=== PATIENT | female | born 1995 | race Caucasian/White ===

== ENCOUNTER 2017-03-19 02:54 | Emergency (ER) | payer OTHER ==
[~2017-03-19] VITALS: Ht 157.5 cm; Wt 75.1 kg
[~2017-03-19 02:54] MED LIST: ACET-1256 PO
[2017-03-19 02:58] VITALS: Ht 157.5 cm; Wt 75.1 kg
--- NOTE | 2017-03-19 03:37 | EMERGENCY ROOM VISIT NOTE ---
History First contact with patient: 03:07 Chief Complaint: OTHER COMPLAINT Stated Complaint: NEXPLANON IS CAUSING SEVERE ARM PAIN History of Present Illness The patient is a 21 year old female who presents to the Emergency Room with complaints of left arm pain. The patient states that she has a Nexplanon implant in her left arm. She has had this in place for 3 years and states that it was inserted by a [facility] in [place]. The patient states that the left arm has been painful for the past 2 days. The pain is worst in the upper arm, but radiates throughout the entire arm. She denies any injuries. She is concerned that the implant may be broken. 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 She denies any redness, swelling or fever. Review of Systems A complete 10 point review of systems was reviewed with the patient with pertinent positives and negatives as per history of present illness. All else were negative. Past Medical/Surgical History Medical Problems: (1) No significant past medical history Surgical Problems: (1) No history of previous surgery Social History Smoking Status: Former Smoker Alcohol Use: occasionally Drug Use: none Marital Status: single Housing Status: lives with friends Occupation Status: unemployed Current/Historical Medications Scheduled Acetaminophen (Tylenol), 500-1,000 MG PO PRN UD Allergies Coded Allergies: No Known Allergies (Unverified , 07/04/16) Physical Exam Vital Signs Date Time Temp Pulse Resp B/P Pulse Ox O2 Delivery O2 Flow Rate FiO2 03/19/17 03:48 36.8 70 19 124/88 99 03/19/17 02:58 36.8 70 19 124/88 99 Room Air Physical Exam VITALS: Vitals are noted on the nurse's note and reviewed by myself. Vital signs stable. GENERAL: This is a 21-year-old female, in no acute distress, nondiaphoretic, well-developed well-nourished. SKIN: No erythema, induration or warmth of the left upper arm. A linear foreign body is palpated under the skin in the left medial upper arm. MUSCULOSKELETAL: Full range of motion of the left arm. There is tenderness to palpation diffusely over the left arm. NEURO: Patient was alert and oriented to person place and time. Medical Decision & Procedures Medical Decision Differential diagnosis includes infection, implant migration, muscle soreness, among others. The patient was evaluated as above. The implant is easily palpable under the skin and there are no signs of infection. Given that there was no trauma, I do not feel imaging is necessary. The patient was referred to PATIENT ACCOUNTS SPECIALIST for follow- up. She was instructed to take Tylenol and ibuprofen for pain. She verbalized understanding and was discharged home in good condition. Impression Primary Impression: Left upper arm pain Departure Information Dispostion Home / Self-Care Condition GOOD Referrals No Doctor, Assigned (PCP) Tra Bedoya M.D. Patient Instructions My [facility] Additional Instructions Follow up with [facility] PATIENT ACCOUNTS SPECIALIST. Call for appointment. For pain control, you can use the following fehl-kiz-[id number] medicines (if >12 yo): - Regular strength (325mg/tab) Tylenol (acetaminophen) 2 tabs every 4-6 hours as needed. Do not exceed 12 tablets in a 24 hour period. Avoid taking more than 4 grams (4000 mg) of Tylenol per day. This includes any other sources of acetaminophen you may take on a regular basis. - Regular strength (200 mg/tab) Advil (ibuprofen) 1-2 tabs every 4-6 hours as needed. Do not exceed a dose of 3200 mg per day.
[2017-03-19 03:48] VITALS: BP 124/88; PULSE 70; TEMP 36.8; O2SAT 99
[2017-03-19] MEDS ORDERED: ETON1IMP2 EP (03:55)
== END 2017-03-19 03:49 | disposition home or self-care (01) ==
LOC: C.EDB 02:55
DX: M79.602 Pain in left arm (principal); Z87.891 Personal history of nicotine dependence

== ENCOUNTER 2017-05-31 17:33 | Emergency (ER) | payer OTHER ==
[~2017-05-31] VITALS: Ht 157.5 cm; Wt 77.9 kg
[~2017-05-31 17:33] MED LIST changes: +ETON1IMP2 EP
[2017-05-31 17:35] VITALS: TEMP 36.8; Ht 157.5 cm; Wt 77.9 kg
--- NOTE | 2017-05-31 19:56 | DIAGNOSTIC IMAGING REPORT ---
RIGHT LOWER EXTREMITY VENOUS DOPPLER CLINICAL HISTORY: Right leg pain. COMPARISON STUDY: No previous studies for comparison. TECHNIQUE: Sonography of the deep venous system of the right lower extremity was performed. Compression and augmentation were evaluated. FINDINGS: The common femoral, superficial femoral and popliteal veins were compressible. Augmentation was normal. Flow was shown within the deep calf vessels. Sonography of the anterior right thigh at site of maximal pain revealed no fluid collection or other sonographic abnormality. IMPRESSION: No evidence of deep venous thrombus within the right lower extremity. Electronically signed by: Dusty Key M.D. 05/31/2017 7:55 PM Dictated Date/Time: 05/31/2017 7:54 PM
--- NOTE | 2017-05-31 20:13 | EMERGENCY ROOM VISIT NOTE ---
History First contact with patient: 17:44 Chief Complaint: BITE Stated Complaint: POSS SPIDER BITE L SHOULDER,PULLED MUSCLE R LEG History of Present Illness The patient is a 22 year old female who presents to the Emergency Room with complaints of a possible spider bite to her left shoulder and a pulled muscle on her right leg. The patient states that she was camping a few days ago and noticed an insect bite on her left shoulder. She states it was initially itchy but has improved. She was concerned because it appears to be 2 bites beside each other, and she was concerned that it may be a spider bite. She denies any pain in that region. The patient also states that she has had right thigh pain for about one week. She states that the pain worsened when she went to [facility] and walked around a few days ago. She denies any specific injury to the leg. She does take control pills and "vapes." She denies any recent travel. She denies any chest pain or shortness of breath. She denies any redness or swelling of the leg. She rates her discomfort a 5/10. Review of Systems A complete 10 point review of systems was reviewed with the patient with pertinent positives and negatives as per history of present illness. All else were negative. Past Medical/Surgical History Medical Problems: (1) No significant past medical history Surgical Problems: (1) No history of previous surgery Social History Smoking Status: Former Smoker Alcohol Use: occasionally Drug Use: none Marital Status: single Housing Status: lives with friends Occupation Status: unemployed Current/Historical Medications No Active Prescriptions or Reported Meds Allergies Coded Allergies: No Known Allergies (Unverified , 07/04/16) Physical Exam Vital Signs Date Time Temp Pulse Resp B/P (MAP) Pulse Ox O2 Delivery O2 Flow Rate FiO2 05/31/17 20:27 81 16 120/84 97 Room Air 05/31/17 17:35 36.8 78 18 116/82 96 Room Air Physical Exam VITALS: Vitals are noted on the nurse's note and reviewed by myself. Vital signs stable. GENERAL: This is a 22-year-old female, in no acute distress, nondiaphoretic, well-developed well-nourished. SKIN: There are 2 small adjacent insect bites on the left shoulder. HEART: Regular rate and rhythm without murmurs gallops or rubs. LUNGS: Clear to auscultation bilaterally without wheezes, rales or rhonchi. MUSCULOSKELETAL: No significant tenderness to palpation. Full range of motion throughout. Strength 5/5 in bilateral lower extremity. NEURO: Patient was alert and oriented to person place and time. Medical Decision & Procedures ER Provider Diagnostic Interpretation: RIGHT LOWER EXTREMITY VENOUS DOPPLER CLINICAL HISTORY: Right leg pain. COMPARISON STUDY: No previous studies for comparison. TECHNIQUE: Sonography of the deep venous system of the right lower extremity was performed. Compression and augmentation were evaluated. FINDINGS: The common femoral, superficial femoral and popliteal veins were compressible. Augmentation was normal. Flow was shown within the deep calf vessels. Sonography of the anterior right thigh at site of maximal pain revealed no fluid collection or other sonographic abnormality. IMPRESSION: No evidence of deep venous thrombus within the right lower extremity. Medical Decision Differential diagnosis includes DVT, superficial thrombus, musculoskeletal injury, among others. The patient was evaluated as above. An ultrasound of the right leg was performed to rule out DVT, as the patient does have atraumatic leg pain. This was performed and read by radiology with no acute findings. The patient's pain is likely musculoskeletal in nature. Conservative measures were discussed. She was instructed to follow-up with her primary care provider for further evaluation. She verbalized understanding of my assessment and treatment plan and was discharged home in good condition. Medication reconciliation: I attest that I have personally reviewed the patient 's current medication list. Blood pressure screening: Patient was found to have normal blood pressure on screening and does not require follow-up. Impression Primary Impression: Right leg pain Departure Information Dispostion Home / Self-Care Condition GOOD Prescriptions No Active Prescriptions or Reported Meds Referrals No Doctor, Assigned (PCP) Patient Instructions My [facility] Additional Instructions For pain control, you can use the following hpxu-biw-lfgzppr medicines (if >12 yo): - Regular strength (325mg/tab) Tylenol (acetaminophen) 2 tabs every 4-6 hours as needed. Do not exceed 12 tablets in a 24 hour period. Avoid taking more than 4 grams (4000 mg) of Tylenol per day. This includes any other sources of acetaminophen you may take on a regular basis. - Regular strength (200 mg/tab) Advil (ibuprofen) 1-2 tabs every 4-6 hours as needed. Do not exceed a dose of 3200 mg per day. Rest as much as possible for the next 3-4 days. If you have persistent or worsening pain, you should follow-up with your primary care provider for further evaluation.
[2017-05-31 20:27] VITALS: BP 120/84; PULSE 81; O2SAT 97
== END 2017-05-31 20:29 | disposition home or self-care (01) ==
LOC: C.EDB 17:34 → C.EDD 20:29
DX: M79.604 Pain in right leg (principal); S40.262A Insect bite (nonvenomous) of left shoulder, initial encounter; W57.XXXA Bitten or stung by nonvenomous insect and other nonvenomous arthropods, initial encounter; Y92.833 Campsite as the place of occurrence of the external cause; Z87.891 Personal history of nicotine dependence; Z79.3 Long term (current) use of hormonal contraceptives

== ENCOUNTER 2017-06-06 00:49 | Emergency (ER) | payer OTHER ==
[~2017-06-06] VITALS: Ht 157.5 cm; Wt 75.2 kg
[2017-06-06 00:57] VITALS: TEMP 37.1; Ht 157.5 cm; Wt 75.2 kg
[2017-06-06] MEDS ORDERED: XYLOCAINE 1%/SOD BICARB 20 ML VIAL INFIL ONE (01:15)
[2017-06-06] MEDS ORDERED: DIPHTHERIA/TETANUS/PERTUSSIS 0.5 ML SYR/VIAL IM. ONE (01:15)
[2017-06-06 02:11] VITALS: BP 115/76; PULSE 57; O2SAT 97
--- NOTE | 2017-06-06 05:41 | EMERGENCY ROOM VISIT NOTE ---
ED Visit Note First contact with patient: 01:00 CHIEF COMPLAINT: Left forearm laceration HISTORY OF PRESENT ILLNESS: This 22-year-old female patient presents to the emergency department after cutting the left forearm about one hour ago. The patient was putting together a glass entertainment center, when a piece fell, shattered, and caused her injury. The bleeding has stopped. Denies weakness or numbness of the hand, wrist, or elbow. The patient rates the pain as dull and 4/ 10. The patient denies any other injuries. The patient's Tetanus shot is not up to date. REVIEW OF SYSTEMS: A 6 system review of systems was completed with positives and pertinent negatives listed in the HPI. ALLERGIES: Known allergies MEDICATIONS: See EMR PMH: See EMR SOCIAL HISTORY: Lives locally PHYSICAL EXAM: Vital Signs: Reviewed Nurse's notes, vital signs stable. GENERAL : White female, in no acute distress, well-developed, well-nourished. SKIN: There is a 5.5 cm long laceration on the volar aspect of the left forearm. The edges gape apart with traction. There is no foreign material in the wound and it looks clean. There is bleeding. No deep structures such as tendons, bones, or significant blood vessels are seen in the base of the wound. Normal strength and movement of the wrist and hand. Capillary refill less than 2 seconds. Normal sensation to light and sharp touch. EMERGENCY DEPARTMENT COURSE: I examined the patient. Verbal consent was obtained to perform the procedure. Using sterile technique the wound was cleansed with Betadine. The area was sterilely draped. 5 ml of 1% buffered lidocaine was used to anesthetize the laceration on the left forearm. Once the patient was anesthetized, the wound was copiously irrigated under pressure with sterile saline. The wound was explored and was as described above. The laceration was repaired using 8 simple interrupted 4-0 nylon sutures with the wound edges being well approximated. The patient tolerated the procedure well. Hemostasis was achieved. The area was cleaned with sterile saline and dressed with bacitracin ointment and bandage. The patient was given Td immunization. The patient was discharged home in good condition. Current/Historical Medications No Active Prescriptions or Reported Meds Allergies Coded Allergies: No Known Allergies (Unverified , 07/04/16) Vital Signs Date Time Temp Pulse Resp B/P (MAP) Pulse Ox O2 Delivery O2 Flow Rate FiO2 7/23/17 02:11 57 20 115/76 97 06/06/17 00:57 37.1 107 20 131/84 100 Room Air Medications Administered Medications (Trade) Dose Ordered Sig/Jose Route Start Time Stop Time Status Last Admin Dose Admin Diphtheria/ Pertussis/Tetanus Vacc (Adacel Inj) 0.5 ml ONCE ONCE IM. 06/06/17 01:15 06/06/17 01:16 DC 06/06/17 01:12 0.5 ML Departure Information Impression Primary Impression: Laceration of forearm, left Dispostion Home / Self-Care Condition GOOD Prescriptions No Active Prescriptions or Reported Meds Forms HOME CARE DOCUMENTATION FORM, IMPORTANT VISIT INFORMATION Patient Instructions My [facility] Additional Instructions Keep wound clean and dry. Do not allow any crusting or dried blood to accumulate on sutures. If this occurs, use a mild soap/water on a Q-tip to clean the wound. Do not use Peroxide to clean the wound as this can delay healing Use an antibiotic ointment like Bacitracin for 3-4 days, then let wound dry. You may bathe and shower as normal, but DO NOT SOAK the wound. Suture removal in about 10-12 days with your Family Doctor or in the ER. Return sooner for any signs of infection, increasing redness, swelling, or drainage.
== END 2017-06-06 02:14 | disposition home or self-care (01) ==
LOC: C.EDB 00:50
DX: S51.812A Laceration without foreign body of left forearm, initial encounter (principal); W25.XXXA Contact with sharp glass, initial encounter; Z23 Encounter for immunization; Y93.89 Activity, other specified

== ENCOUNTER 2017-06-08 03:11 | Inpatient (IN) | payer OTHER ==
[~2017-06-08] VITALS: Ht 157.5 cm; Wt 74.0 kg
--- NOTE | 2017-06-08 03:43 | EMERGENCY ROOM VISIT NOTE ---
History Report prepared by Martha: Ad Arellano Under the Supervision of: Dr. Tiffanie Maxwell D.O. First contact with patient: 03:22 Chief Complaint: MENTAL HEALTH EVALUATION Stated Complaint: MR History of Present Illness The patient is a 22 year old female who presents to the Emergency Room for a mental health evaluation due to self harm. The patient states that she was cutting her forearms with a razor blade to release the depression. She states that she has a history of depression and anxiety, though she does not take any medication. The patient states that she does not see a therapist, and she has been admitted to a psychiatric facility before more than four year ago. The patient states that she drank a small amount of alcohol tonight, and she did not do any drugs. The patient states that her mother called the police due to a facebook post, and she states that she is depressed because her mother took away her son, and her boyfriend left her. She states that she currently lives alone, and her last period was two and a half weeks ago. She denies any leg cramping or swelling. The patient additionally states that she has sutures in her arm from accidentally cutting herself with broken glass. Source of History: patient Onset: prior to arrival Position: other (global) Quality: other (self harm) Note: Associated symptoms: Cuts to the left forearm Review of Systems See HPI for pertinent positives & negatives. A total of 10 systems reviewed and were otherwise negative. Past Medical & Surgical Medical Problems: (1) Depression (2) No significant past medical history Surgical Problems: (1) No history of previous surgery Social History Problems: (1) Unprotected sex Family History Patient reports no known family medical history. Social History Smoking Status: Current Every Day Smoker Alcohol Use: occasionally Drug Use: none Marital Status: single Housing Status: lives with friends Occupation Status: unemployed Current/Historical Medications No Active Prescriptions or Reported Meds Allergies Coded Allergies: No Known Allergies (Unverified , 07/04/16) Physical Exam Vital Signs Date Time Temp Pulse Resp B/P (MAP) Pulse Ox O2 Delivery O2 Flow Rate FiO2 06/08/17 06:30 70 18 119/70 98 Room Air 06/08/17 04:30 69 18 110/76 100 Room Air 06/08/17 03:14 36.7 88 14 132/86 98 Room Air Physical Exam HEENT: Head - normocephalic and atraumatic Pupils are equal, round, and reactive to light. Extraocular eye muscles are intact, and sclera are anicteric. Nose - moist nasal mucosa without discharge. Mouth - moist buccal mucosa. Oropharynx is nonerythematous and there is no tonsillar exudate or edema noted. Neck: Supple; no JVD, nuchal rigidity, cervical lymphadenopathy. Heart: Regular rate and rhythm. There is a normal S1 and S2 with no murmurs, clicks, or gallops appreciated. Lungs: Clear to auscultation bilaterally with no wheezes, rales, or rhonchi. Abdomen: Soft, completely nontender, nondistended, with good bowel sounds. There are no palpable pulsatile masses or hepatosplenomegaly. There is no guarding, rigidity, or rebound noted. Extremities: Superficial laceration to the left ventral forearm. One well healing sutured laceration.No evidence of cyanosis, clubbing, or edema. There are easily palpable peripheral pulses. Skin: warm and dry with good turgor and no rashes. Psych: Appears depressed and slightly angry. Admits to self mutilation. Medical Decision & Procedures Laboratory Results 06/08/17 03:53 06/08/17 03:53 Test 06/08/17 03:53 06/08/17 03:55 Red Blood Count 4.93 M/uL (4.2-5.4) Mean Corpuscular Volume 81.9 fL (80-100) Mean Corpuscular Hemoglobin 28.2 pg (25-34) Mean Corpuscular Hemoglobin Concent 34.4 g/dl (32-36) RDW Standard Deviation 39.0 fL (36.4-46.3) RDW Coefficient of Variation 13.0 % (11.5-14.5) Mean Platelet Volume 8.4 fL (7.4-10.4) Anion Gap 7.0 mmol/L (3-11) Est Creatinine Clear Calc Drug Dose 134.9 ml/min Estimated GFR () 148.6 Estimated GFR (Non- 128.2 BUN/Creatinine Ratio 8.2 (10-20) Calcium Level 8.1 mg/dl (8.5-10.1) Total Bilirubin 0.1 mg/dl (0.2-1) Direct Bilirubin < 0.1 mg/dl (0-0.2) Aspartate Amino Transf (AST/SGOT) 18 U/L (15-37) Alanine Aminotransferase (ALT/SGPT) 33 U/L (12-78) Alkaline Phosphatase 66 U/L (45-117) Total Protein 6.2 gm/dl (6.4-8.2) Albumin 3.3 gm/dl (3.4-5.0) Thyroid Stimulating Hormone (TSH) 1.070 uIu/ml (0.300-4.500) Salicylates Level < 1.7 mg/dl (2.8-20) Acetaminophen Level < 2 ug/ml (10-30) Ethyl Alcohol mg/dL 30.0 mg/dl (0-3) Urine Color YELLOW Urine Appearance CLOUDY (CLEAR) Urine pH 6.5 (4.5-7.5) Urine Specific [place] 1.008 (1.000-1.030) Urine Protein NEG (NEG) Urine Glucose (UA) NEG (NEG) Urine Ketones NEG (NEG) Urine Occult Blood TRACE (NEG) Urine Nitrite NEG (NEG) Urine Bilirubin NEG (NEG) Urine Urobilinogen NEG (NEG) Urine Leukocyte Esterase MODERATE (NEG) Urine WBC (Auto) >30 /hpf (0-5) Urine RBC (Auto) 0-4 /hpf (0-4) Urine Hyaline Casts (Auto) 1-5 /lpf (0-5) Urine Epithelial Cells (Auto) >30 /lpf (0-5) Urine Bacteria (Auto) 2+ (NEG) Urine Test NEG (NEG) Urine Opiates Screen NEG (NEG) Urine Methadone, Qualitative NEG (NEG) Urine Barbiturates NEG (NEG) Urine Phencyclidine (PCP) Level NEG (NEG) Ur Amphetamine/Methamphetamine NEG (NEG) MDMA (Ecstasy) Screen NEG (NEG) Urine Benzodiazepines Screen NEG (NEG) Urine Cocaine Metabolite NEG (NEG) Urine Marijuana (THC) NEG (NEG) Laboratory results per my review. ED Course 0322: Past medical records reviewed. The patient was evaluated in room B9. A complete history and physical exam was performed. Labs were drawn as above. 0458: I reevaluated the patient, and she was now medically clear. She was cooperative. 520: The patient was evaluated by staff from [facility]. 0631: I spoke with the staff at [facility], and they are talking about taking her to a psychiatrist. 0644: [facility] has accepted the patient. Medical Decision The patient is a 22 year old female who presents to the ED for a mental health evaluation. Differential diagnosis includes self-injury, suicidal threats, and mood disorder. Lab results show: Normal white count and H&H, glucose of 110, normal renal function, normal TSH and LFTs, calcium was slightly low at 8.1, negative aspirin and Tylenol, negative tox screen, alcohol was 30, was negative , urinalysis looks contaminated with >30 epithelial, >30 white blood cells, 2+ bacteria, and moderate leukocyte esterase. This is a 22-year-old female patient with a history of depression and self- mutilation. The patient has caused lacerations to her left forearm. She describes feeling desperate and hopeless about her life situation with regards to her relationship with her mother and losing custody of her son. The patient has not patient services at this time. I am concerned for the patient's safety. She has agreed to sign herself in voluntarily to [facility] Medication Reconcilliation Current Medication List: was personally reviewed by me Blood Pressure Screening Patient's blood pressure: Normal blood pressure Impression Primary Impression: Self-inflicted injury Scribe Attestation The scribe's documentation has been prepared under my direction and personally reviewed by me in its entirety. I confirm that the note above accurately reflects all work, treatment, procedures, and medical decision making performed by me. Departure Information Dispostion Mental Health Acute Care Prescriptions No Active Prescriptions or Reported Meds Referrals No Doctor, Assigned (PCP) Patient Instructions My [facility]
[2017-06-08 04:06] LABS: HEMATOCRIT 40.4 % (37-47); MEAN CELL VOLUME 81.9 fL (80-100); MEAN CORPUSCULAR HEMOGLOBIN 28.2 pg (25-34); MEAN CORPUSCULAR HGB CONC 34.4 g/dl (32-36); MEAN PLATELET VOLUME 8.4 fL (7.4-10.4); PLATELET COUNT 346 K/uL (130-400); RED BLOOD COUNT 4.93 M/uL (4.2-5.4); WHITE BLOOD COUNT 8.06 K/uL (4.8-10.8)
[2017-06-08 04:11] LABS: URINE APPEARANCE CLOUDY (CLEAR); URINE BILIRUBIN NEG (NEG); URINE COLOR YELLOW; URINE EPITHELIAL CELL AUTO >30 /lpf (0-5); URINE NITRITE NEG (NEG); URINE PH 6.5 (4.5-7.5); URINE SPECIFIC GRAVITY 1.008 (1.000-1.030); UROBILINOGEN NEG (NEG)
[2017-06-08 04:12] LABS: MANUAL MICROSCOPIC REQUIRED? NO; REVIEW REQ? NO
[2017-06-08 04:32] LABS: ALT/SGPT 33 U/L (12-78); AST/SGOT 18 U/L (15-37); BLOOD UREA NITROGEN 5 mg/dl (7-18); BUN/CREATININE RATIO 8.2 (10-20); CALCIUM 8.1 mg/dl (8.5-10.1); CARBON DIOXIDE 24 mmol/L (21-32); CHLORIDE 111 mmol/L (98-107); CREATININE 0.63 mg/dl (0.60-1.20); GLUCOSE 110 mg/dl (70-99); POTASSIUM 3.7 mmol/L (3.5-5.1); SODIUM 142 mmol/L (136-145)
[2017-06-08 04:34] LABS: BENZODIAZEPINE, URINE NEG (NEG); COCAINE,URINE NEG (NEG); PHENCYCLIDINE, URINE NEG (NEG)
[2017-06-08 04:35] LABS: ACETAMINOPHEN < 2 ug/ml (10-30)
[2017-06-08 04:42] LABS: ALKALINE PHOSPHATASE 66 U/L (45-117)
[2017-06-08] MEDS ORDERED: NURSING VERBAL MED ORDER ONE (06:45)
[2017-06-08] MEDS ORDERED: BISMUTH SUBSALICYLATE PER ML OMNICELL CHARGE PO PRN (07:00)
[2017-06-08] MEDS ORDERED: ALUMINUM/MAGNESIUM SUSP 30 ML UDC PO PRN (07:00)
[2017-06-08] MEDS ORDERED: hydrOXYzine HCL 25 MG TAB PO PRN ×2 (07:00)
[2017-06-08] MEDS ORDERED: SODIUM CHLORIDE 0.65% NA SOLN 45 ML (OCEAN) PRN (07:00)
[2017-06-08] MEDS ORDERED: ACETAMINOPHEN 325 MG TAB PO PRN (07:00)
[2017-06-08] MEDS ORDERED: MAGNESIUM HYDROXIDE SUSP 30 ML UDC PO PRN (07:00)
[2017-06-08 07:33] VITALS: O2SAT 98
[2017-06-08 08:07] VITALS: BP 119/70; PULSE 59; TEMP 36.7; Ht 157.5 cm; Wt 74.0 kg
[2017-06-08 08:22] VITALS: BP 131/85; PULSE 59; TEMP 37
--- NOTE | 2017-06-08 10:48 | Psychiatric History & Physical ---
History Date of Service Jun 08, 2017. Identifying Data Araceli Rasmussen is a 22-year-old female who currently lives in [place] , has a history of multiple psychiatric admissions as an adolescent, self- injurious behavior by cutting, and multiple psychosocial stressors who presented to the emergency room with a 302 petition from police after she posted concerning statements on social media, and admitted to self injury by cutting. She was admitted on a 201 voluntary commitment. Chief Complaint "I just want to go home and go to sleep". History of Present Illness The patient presented to the emergency room overnight with police, who had completed a 302 petition. The patient's mother contacted them after she saw a post on social media from the patient stating that she did not know what felt worse, a bottle of alcohol against her lips or a razor against her wrist. Her mother called the police to check on her, and they brought her to the emergency room. She had multiple self-inflicted lacerations on her left anterior forearm , and a deeper laceration for which she was seen in the emergency room and received 8 sutures on 06/06/2017. She stated that that injury was an accident, but admitted that she cuts herself to relieve depression. Her blood alcohol was 30, and she admitted to drinking 1-1/2 wine coolers. She endorsed multiple stressors, stating her boyfriend broke up with her that day, her mother took physical custody of her 4-year-old son, and she is facing felony charges with a court date today. She lives alone, has few supports, and no outpatient providers. On my assessment, the patient was seen with Lizzie Curtis, MS 3. She states that she has had multiple stressors recently. Two days ago she and her boyfriend were arrested for stealing at [facility], as they bought a TV, but were then stopped and accused of switching the tags so that they would not have to pay as much. Her boyfriend's mother then threatened to cut him off financially if he did not move out of the patient's apartment and come back home with her, so he did it. Late last night, her mother came to her house and took her 4-year -old son, who the patient says has been living with her for the past year. Patient said her mother told her she could only have supervised visits with her son because of her criminal charges. Her mother then sent her a message that she was coming to get the patient's dog, which the patient says is "the only thing I have left." She admits that she was drinking, stating she "wanted to go to sleep, get the night over with." She posted statements on social media, detailed above, although the patient states she posted the lyrics to a song called "Cut" by Becky which does not contain the above quote. She admits that she cut her left arm multiple times superficially, and states it was the first time she had cut in 3 years. She denies the deeper laceration which required sutures in the ER 2 days ago was a result of self-inflicted injury, and states that it occurred when she was trying to put together a glass entertainment unit , and it broke and fell onto her arm. She states that when the police arrived in her apartment last night, they told her she had to come with them to the emergency room, and that she only signed in voluntarily because she was told that she would be "302'd" otherwise. She admits to feeling sad and says "I'm depressed," but doesn't feel she needs to be in the hospital, and would like to go home she feels more comfortable there. She denies changes in appetite and weight, problems with energy or focus, crying spells, sleep difficulties, irritability, and suicidality. She does endorse hopelessness, stating "there is always that thoughts, but I try to be optimistic." She denies anhedonia, noting that she enjoys spending time with her son. She reports anxiety which she describes as feeling "overheated," which typically lasts a maximum of 2 minutes. She reports a history of one panic attack about 5 years ago, but denies other symptoms of panic and generalized anxiety disorder. She denies symptoms of kurt and psychosis. She notes that she does not want to be here, and has already signed a 72 hour notice. Past Psychiatric History Current OP Treatment: no current treatment Prior OP Treatment: psychiatrist, therapist (has not been in treatment since she was 14 or 15 years old) Prior Psych Hospitalizations: other (7 previous hospitalizations: [facility] at age 9, [facility] at age 15, and [facility] "years ago." [facility] treatment for 11 months at age 14.) Access to a Gun: No Suicide Attempts: No Past Medication Trials Concerta, Celexa, Prozac, and others that she cannot recall. She states that all antidepressants "did the complete opposite of what they were supposed to, made me feel suicidal." Additional Notes Patient states she was diagnosed with ADHD, depression, and bipolar disorder in the past. She has not been in treatment since she was 14 or 15 years old, she says "because I moved away from my mother, got better friends I can trust." She has a history of self-injurious behavior by cutting, which she engaged in as a teenager, and had not cut and 3 years until last night. She denies that any of her self-inflicted lacerations have required sutures in the past. She denies a history of violence towards others, and denies thoughts of harming others. Past Medical/Surgical History (1) Allergic rhinitis Patient denies having a PCP or DISTRICT SALES MANAGER. Last menstrual period was about 2 weeks ago. She is sexually active, and has recently been trying to get with her boyfriend. Allergies Allergies: Coded Allergies: No Known Allergies (Unverified , 07/04/16) Home Medications No Active Prescriptions or Reported Meds Family History Patient reports no known family medical history. History of Suicide: No History of Substance Abuse: No Psychiatric History: No Alcohol Use Alcohol Use In Past 12 Months: Yes (1 wine cooler FOUNDRY HAND; reports drinking 0-1 times a month, 1-2 drinks in a sitting. Denies problems stemming from alcohol use.) AUDIT Total Score: 1 Smoking Use Smoking Status: Light Tobacco Smoker 1-3 cigarettes daily. Substance History Denies abusing illicit substances, prescription medications, or other recreational drugs. Personal History Lives in: [place] alone in an apartment. Childhood: 2 brothers, 7 sisters. 14-year-old brother from mother, and the rest of her siblings are from father. All but two have different mothers. Not close with siblings. Never knew father, and mother lives in [place]. Education: graduated from high school Work History: Unemployed. 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 She goes to [place] twice a week to donate plasma for money. Relationship History: never (breakup with boyfriend of 4 months yesterday) Children: 4-year-old son, who is in the custody of her mother Legal History: reported (felony charges and missing her court date today) Psychological Trauma History: Denies Hx Traumatic Event Additional Comments: The patient's mother has had legal custody of her son since he was born, and lived with him out of state for the first years of his life. The patient had been caring for him for the past year. Her boyfriend was living with her until he moved out sometime in the past 2 days. Review of Systems 10 systems reviewed and are negative except as stated above. Examination Physical Examination A physical exam was performed in the ER prior to admission to the unit by Dr. Maxwell. I accept that physical as correct/medical clearance for the inpatient physical exam. The patient's forearms were examined; numerous linear, parallel superficial lacerations on the left forearm that appear to be healing well, and one deeper laceration with sutures intact, no erythema, swelling, or exudate. Vital Signs Vital Signs Past 12 Hours Date Time Temp Pulse Resp B/P (MAP) Pulse Ox O2 Delivery O2 Flow Rate FiO2 06/08/17 08:22 37.0 59 18 131/85 06/08/17 08:07 36.7 59 18 119/70 06/08/17 07:33 70 18 119/70 98 06/08/17 06:30 70 18 119/70 98 Room Air 06/08/17 04:30 69 18 110/76 100 Room Air 06/08/17 03:14 36.7 88 14 132/86 98 Room Air Laboratory Results Last 24 Hours Test 06/08/17 03:53 06/08/17 03:55 White Blood Count 8.06 K/uL Red Blood Count 4.93 M/uL Hemoglobin 13.9 g/dL Hematocrit 40.4 % Mean Corpuscular Volume 81.9 fL Mean Corpuscular Hemoglobin 28.2 pg Mean Corpuscular Hemoglobin Concent 34.4 g/dl RDW Standard Deviation 39.0 fL RDW Coefficient of Variation 13.0 % Platelet Count 346 K/uL Mean Platelet Volume 8.4 fL Sodium Level 142 mmol/L Potassium Level 3.7 mmol/L Chloride Level 111 mmol/L Carbon Dioxide Level 24 mmol/L Anion Gap 7.0 mmol/L Blood Urea Nitrogen 5 mg/dl Creatinine 0.63 mg/dl Est Creatinine Clear Calc Drug Dose 134.9 ml/min Estimated GFR () 148.6 Estimated GFR (Non- 128.2 BUN/Creatinine Ratio 8.2 Random Glucose 110 mg/dl Calcium Level 8.1 mg/dl Total Bilirubin 0.1 mg/dl Direct Bilirubin < 0.1 mg/dl Aspartate Amino Transf (AST/SGOT) 18 U/L Alanine Aminotransferase (ALT/SGPT) 33 U/L Alkaline Phosphatase 66 U/L Total Protein 6.2 gm/dl Albumin 3.3 gm/dl Thyroid Stimulating Hormone (TSH) 1.070 uIu/ml Salicylates Level < 1.7 mg/dl Acetaminophen Level < 2 ug/ml Ethyl Alcohol mg/dL 30.0 mg/dl Urine Color YELLOW Urine Appearance CLOUDY Urine pH 6.5 Urine Specific Anthony 1.008 Urine Protein NEG Urine Glucose (UA) NEG Urine Ketones NEG Urine Occult Blood TRACE Urine Nitrite NEG Urine Bilirubin NEG Urine Urobilinogen NEG Urine Leukocyte Esterase MODERATE Urine WBC (Auto) >30 /hpf Urine RBC (Auto) 0-4 /hpf Urine Hyaline Casts (Auto) 1-5 /lpf Urine Epithelial Cells (Auto) >30 /lpf Urine Bacteria (Auto) 2+ Urine Test NEG Urine Opiates Screen NEG Urine Methadone, Qualitative NEG Urine Barbiturates NEG Urine Phencyclidine (PCP) Level NEG Ur Amphetamine/Methamphetamine NEG MDMA (Ecstasy) Screen NEG Urine Benzodiazepines Screen NEG Urine Cocaine Metabolite NEG Urine Marijuana (THC) NEG Mental Examination During interview pt is: alert and oriented, cooperative, guarded Appearance: appeared stated age, other (overweight, casually dressed, hair dyed multiple colors, numerous tattoos visible, including and a Ouija board tattoo over her chest) Eye contact is: fair Motor behavior is: steady gait & station, no abnormal motor movements Speech: normal in rate, rhythm & volume Affect: depressed, constricted Mood is: depressed Thought process: goal directed Thought content: reality based without delusions Suicidal thought are: denied (but admits to self injury by cutting) Homicidal thoughts are: denied Hallucinations: denies auditory, denies visual Cognition: memory grossly intact, attention grossly intact, language grossly intact Intelligence estimated to be: consistent with level of education Insight: impaired Judgement: impaired Impression / Recommendations Impression 22-year-old single white female with a self-reported history of ADHD, bipolar disorder, depression, and cutting who presents after making multiple superficial lacerations on her forearm and posting concerning statements on social media in the context of multiple psychosocial stressors, including felony charges, loss of her job, loss of custody of her 4-year-old son, and a breakup with her boyfriend. She presented with police who completed a 302 petition, but signed in voluntarily. She immediately submitted a 72 hour notice requesting to withdraw from treatment. She endorses some depressive symptoms, but is not interested in medications, does not feel she needs treatment. We'll need to get collateral information, as there are some discrepancies in her story, and she certainly has a lot of risk factors for self harm. Inventory Assets Strengths: "When I'm happy, I'm probably the most positive person you meet," good sense of humor, sees the positive and others. Needs: Collateral information from other sources, increased support, outpatient treatment Risk Factors Assessment : Yes /single/: Yes Higher / Fall in social status: No Access to guns: No Health problems: No Mental Health Diagnoses: Yes Substance use disorders: No Previous attempt: No Family history of suicide: No Previous psychiatric stay: Yes Hopelessness: Yes Smoker: Yes Protective Factors Assessment Advent beliefs: No : No Responsible for young children: No Employed: No Stable relationships: No Supportive family: No Good rapport with provider: No Recommendations (1) Depression Patient is declining antidepressant medication, stating that in the past, it made her feel worse. We reviewed other modalities for addressing low mood, including therapy, lifestyle changes, and addressing stressors. She is willing to consider a referral for outpatient therapy. She should attend and participate in unit groups and therapy, and work on healthy ways to cope to use in place of cutting. Recommend avoiding alcohol due to propensity to worsen mood and increased risk of self injury. Recommend family meeting and collateral information from mother, including confirming safety of the patient' s 4-year-old son. Could also consider medication to specifically target cutting , although she notes she has not cut in several years, and is not currently interested in medication. Will offer hydroxyzine as needed for anxiety and sleep while here. (2) Self-inflicted injury Bacitracin as needed to lacerations, keep clean and dry, and follow-up with suture removal in 8-10 days per emergency room recommendations. Attend groups and work on healthy ways to cope with distress and negative emotions. Get collateral information; there is some concern that her deeper laceration may be self-inflicted, as the pattern matches that of her other self inflicted lacerations, it is a clean, linear cut on the left forearm, and appears unlikely to have been sustained by a piece of following, broken glass. Referred for outpatient follow-up. (3) Unprotected sex Patient has been having unprotected sex and trying to get . Her last period was about 2 weeks ago, and her test on admission was negative. She should follow up with an DISTRICT SALES MANAGER, and would recommend she not try to get until her mood has stabilized. CPT Code Initial Hospital Care: 89093 Problem Qualifiers (1) Depression: Depression Type: other depression Qualified Codes: F32.89 - Other specified depressive episodes
[2017-06-08] MEDS ORDERED: NICOTINE POLACRILEX 2 MG GUM MT PRN (12:00)
[2017-06-08] MEDS: BACITRACIN OINT 15 GM TUBE EXT PRN (16:10)
--- NOTE | 2017-06-08 23:26 | Medical Student: BHU Only ---
Psychiatric Evaluation IDENTIFYING DATA: Araceli Rasmussen is a 22-year-old female who currently lives in [facility]. Araceli Rasmussen was admitted to the [facility] on a 201 voluntary commitment. Araceli Rasmussen was brought to the hospital by police, who had also completed a 302 petition. Information provided by the patient is considered to be reliable but patient is guarded. CHIEF COMPLAINT: "I just want to go home and sleep". HISTORY OF PRESENT ILLNESS: Patient was brought in by police to ER overnight after patient's mom had contacted the police due to concerning a concerning facebook post the patient had written. Patient has multiple lacerations on her left anterior arm, which are from self-inflicted cut wounds to relieve depression. She had come in the the ER 2 days prior on 06/06/17 for a deep laceration on her left anterior arm and received 8 stitches. She stated that the injury was not self-inflicted and that she had injured herself putting together a glass entertainment set. Recently, Araceli has had multiple stressors. She recently had felony charges for stealing a TV. The patient states that she accidentally scanned the wrong tag at [employer] when she and her boyfriend were purchasing a TV. They were accused of stealing it and the police were called. Due to the charge's the boyfriend's mother threatened to "cut him off" if he continued to live with Araceli. The boyfriend moved out and returned with his mother. Araceli's mom took physical custody of her 4 year old son due to the charges and stated that she would only be allowed supervised visits. Her mother also threatened to take her dog, D, which Araceli states is the only thing she has left. She then posted to facebook lyrics from the song "Cut" by Henri. She admits to cutting her arm (not deep like the cut she presented to in the ER), which she hasn't done before for almost 3.5 years. When the police arrived, she was told that there was a [address] that if she did not sign in voluntarily to the [facility], she would be "302'd". While the patient states that she does feel sad, she doesn't feel that she needs to be in the hospital and that she would be better off at home where she could sleep comfortably. Patient denies any issues with sleep, any anhedonia, guilt, problems with energy , problems with focus, changes in appetite and weight, psychomotor changes or suicidality. She does sometimes feel hopeless, but states that she tries to be optimistic. She does have some issues with anxiety, which she describes as being "overheated", which can last anywhere from a coupe of seconds to 2 min. She has had a history of one panic attach 5 years prior, but has no other symptoms of anxiety. She has no symptoms of kurt and psychosis. Risk of violence to self within the last 6 months: yes, patient has a long history of cutting. Risk of violence to others within the last 6 months: no. CURRENT MEDICATIONS: 1. None PAST PSYCHIATRIC HISTORY: Current outpatient mental health treatment: none Prior outpatient mental health treatment: previous psychiatrist and therapist ( when patient was 13-14 years old) Prior psychiatric hospitalizations: 7 previous admits, with her last admit about 7 years prior. Prior medication trials: Concerta, Celexa, Prozac and others the patient did not know. States none helped and that they all made her "more suicidal". Prior suicide attempts: none. Access to weapons: no PAST MEDICAL HISTORY: Current primary care practitioner is none. medical history: She was diagnosed with ADHD, depression, bipolar disorder in the past. She has not received treatment for any of her mental health disorders since she was 13-14. surgical history: none ObGyn history: , LMP 2 weeks prior. No contraception - was currently trying to get . screen neg. history of head injury: no history of seizure: no history of iv drug use: no ALLERGIES: NKDA FAMILY HISTORY: Mental Health: none Substance Abuse: none Suicide: none Medical history: none SUBSTANCE USE HISTORY: Tobacco use hx: light smoker, 1-3 cigarettes daily Caffeine use hx: none PERSONAL HISTORY: Lives in [place] alone, mother lives in [place]. Doesn't interact with father Siblings: 2 brothers, 7 sisters. Not close with her siblings. 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 She lost that job 1-2 weeks ago due to the criminal charges (though the criminal charges placed only 2 days ago). Relationship History: not , recently broke up with boyfriend Children: 4 year old son, who mother has custody of. Legal History: patient reports only felony charge is the recent charge Physical abuse history: none Emotional/psychological abuse history: none Sexual abuse history: none. MENTAL STATUS EXAM: Appearance is that of a casually dressed female who appears her stated age. The patient is generally cooperative with the interview. Eye contact is good. Motor behavior is normal with no abnormal movements Speech: normal volume, rate, tone. Affect: depressed and guarded. Mood: depressed . Thought process: goal directed Thought content: realistic Cognition: The patient is oriented to person, place, time Insight is estimated to be good. Judgment is estimated to be good. INVENTORY OF ASSETS: * strengths: Patient states that she has a good sense of humor and can see the positive side of others. * needs: Needs of the patient include more support, outpatient treatment (PCP, OBGYN, therapist) RISK ASSESSMENT: * Risk factors: , single, Mental Health Diagnoses (depression), Previous psychiatric hospitalization, Hopelessness, smoker * Protective factors: None DIAGNOSTIC IMPRESSION: Patient is a 22 year old, single white female with a history of multiple psychiatric conditions including ADHD, bipolar disorder and depression, a history cutting, and previous psychiatric hospitalizations. She has recently had many stressors including recent felony charges, loss of physical custody of her 4 year old son, separation from her boyfriend, and loss of her dog. When she was brought to the ER, she had a 302 petition placed but signed into [facility] inpatient voluntarily for 72 hours. While she does note some depressive symptoms , she states that she does not need or want any antidepressant medications and that if she has to she will see a therapist. While she does appear to be reliable, there are some discrepancies in her history. Will want to continue to talk with patient to find out any other information. DSM-V DIAGNOSIS: Unspecified Depressive Disorder RECOMMENDATIONS: 1. Unspecified Depressive Disorder a. Patient does not want to be on antidepressant medication but is willing to accept outpatient therapy. Also talked with patient about other ways of coping with stress. Encouraged patient to talk with mother to ensure her 4 year old son is taken care of. 2. Self-harm a. Abx ointment to help deep laceration heal. Encourage patient to attend Group session and dealing with stress. Continue to try to get information regarding deep laceration. Is on the same arm and in a similar line as her other self-inflicted lacerations. 3. Suicide precautions will be maintained to help provide for patient safety while in the hospital Date of Service: Jun 08, 2017.
[2017-06-09 07:08] VITALS: BP 98/64; PULSE 78; TEMP 36.8
--- NOTE | 2017-06-09 08:51 | Psychiatric Progress Notes ---
Progress Note Date of Service Jun 09, 2017. Interval History Araceli Rasmussen is a 22-year-old female who currently lives in [place] , has a history of multiple psychiatric admissions as an adolescent, self- injurious behavior by cutting, and multiple psychosocial stressors who presented to the emergency room with a 302 petition from police after she posted concerning statements on social media, and admitted to self injury by cutting. She was admitted on a 201 voluntary commitment, but immediately submitted a 72 hour notice requesting to withdraw from treatment. Chief Complaint "I'm not gonna get better, being caged like an animal". Subjective Patient was seen & assessed interval progress reviewed with Treatment Team. She attended two groups but had minimal participation, and refused all other groups. She is refusing to go into her room, and spent most of the day and night on a chair in the dayroom or sitting on the floor of the hallway outside her room. She was found with contraband (a long strip of fabric), which was confiscated. She refused breakfast and ate only 20% of lunch, but 100% of dinner. Last night she was very irritable, refused to go to bed, even though her roommate slept in the group room, which gave Araceli a room to herself, which had been an issue earlier with her. She refused a radio or anything else, stating "I don't need your fucking radio, I just need the fuck out of here". "I' m not going to sleep anyway". She was informed she didn't have to sleep if she didn't want to but she could listen to a radio, or read a book or magazine. She chose to remain in the hallway. After approx. 10 minutes she left her blanket in the reyna and she went into her room. Shortly after, noises came from her room where she was noted to be tearing up all of her admission papers and workbook and throwing everything scattered all over the floor. Her personal items were on the floor as well as her mattress. She was argumentative with every option that was presented. Security rounded on the unit and spoke with her , but she continued to act out, writing messages on all the white boards and posting inappropriate messages on the unit. Today, she remained in bed all morning, but was willing to get up and come to the interview room for her assessment. She states she is "horrible, I just wanna go home." She says her mood is "same," and denies suicidal thoughts and urges to cut. She states that the urges returned, she would "force myself to talk to my best friend so I don' t end up back in this shit hole." Although she has been refusing breakfast, she states that this is normal for her, and her appetite is at baseline. She states that her goal of treatment is "discharge." She is poorly engaged with the interview. Sleep Information Total Hours of Sleep: 1.00 Meal Information Percent of Breakfast Consumed: 0 Percent of Lunch Consumed: 20 Percent of Dinner Consumed: 100 Mental Status Exam During interview pt is: alert and oriented, uncooperative, other (angry) Appearance: appropriately dressed (wearing the same clothes as yesterday), disheveled (having just gotten out of bed), appeared stated age, other ( overweight, hair dyed multiple colors, numerous tattoos visible, including and a Ouija board tattoo over her chest) Eye contact is: fair Motor behavior is: steady gait & station, no abnormal motor movements Speech: other (minimal speech, angry tone) Affect: irritable, angry, constricted Mood is: other ("same") Thought process: goal directed Thought content: reality based without delusions Suicidal thought are: denied (but admits to self injury by cutting) Homicidal thoughts are: denied Hallucinations: denies auditory, denies visual Cognition: memory grossly intact, attention grossly intact, language grossly intact Intelligence estimated to be: consistent with level of education Insight: impaired Judgement: impaired Impression 22-year-old single white female with a self-reported history of ADHD, bipolar disorder, depression, and cutting who presents after making multiple superficial lacerations on her forearm and posting concerning statements on social media in the context of multiple psychosocial stressors, including felony charges, loss of her job, loss of custody of her 4-year-old son, and a breakup with her boyfriend. She presented with police who completed a 302 petition, but signed in voluntarily. She immediately submitted a 72 hour notice requesting to withdraw from treatment. She endorses some depressive symptoms, but is not interested in medications, and does not feel she needs treatment. We will need to get collateral information, as there are some discrepancies in her story, and she certainly has a lot of risk factors for self harm, but her mother has not returned staff's phone calls. Plan (1) Depression Patient is declining antidepressant medication, stating that in the past, it made her feel worse. We reviewed other modalities for addressing low mood, including therapy, lifestyle changes, and addressing stressors. She is willing to consider a referral for outpatient therapy. She should attend and participate in unit groups and therapy, and work on healthy ways to cope to use in place of cutting. Recommend avoiding alcohol due to propensity to worsen mood and increased risk of self injury. Recommend family meeting and collateral information from mother, including confirming safety of the patient' s 4-year-old son. Could also consider medication to specifically target cutting , although she notes she has not cut in several years, and is not currently interested in medication. Will offer hydroxyzine as needed for anxiety and sleep while here. 06/09 - predominantly angry mood, and continues to deny suicidal thoughts and urges to cut. Poorly engaged in treatment, and acting out on the unit in an oppositional way. Suspect [place] II component. (2) Self-inflicted injury Bacitracin as needed to lacerations, keep clean and dry, and follow-up with suture removal in 8-10 days per emergency room recommendations. Attend groups and work on healthy ways to cope with distress and negative emotions. Get collateral information; there is some concern that her deeper laceration may be self-inflicted, as the pattern matches that of her other self inflicted lacerations, it is a clean, linear cut on the left forearm, and appears unlikely to have been sustained by a piece of following, broken glass. Referred for outpatient follow-up. (3) Unprotected sex Patient has been having unprotected sex and trying to get . Her last period was about 2 weeks ago, and her test on admission was negative. She should follow up with an [employer], and would recommend she not try to get until her mood has stabilized. Discharge / Aftercare Planning Primary Care Physician: Name: norris Psychiatrist: Name: You will be assigned a psychiatirst after you intake. Therapist: Name: [facility] Intake-[place] Date of Appointment: Jun 17, 2017 Time of Appointment: 1:00pm Medical Assistant Supervisor: Name: norris Visit Code E&M Code: 33711 Inventory Assets Strengths: "When I'm happy, I'm probably the most positive person you meet," good sense of humor, sees the positive and others. Needs: Collateral information from other sources, increased support, outpatient treatment Risk Factors Assessment : Yes /single/: Yes Higher / Fall in social status: No Access to guns: No Health problems: No Mental Health Diagnoses: Yes Substance use disorders: No Previous attempt: No Family history of suicide: No Previous psychiatric stay: Yes Hopelessness: Yes Smoker: Yes Protective Factors Assessment Yazidi beliefs: No : No Responsible for young children: No Employed: No Stable relationships: No Supportive family: No Good rapport with provider: No Data Vital Signs Last 24 Hrs: Date Time Temp Pulse Resp B/P (MAP) Pulse Ox O2 Delivery O2 Flow Rate FiO2 06/09/17 07:08 36.8 78 16 98/64 Meds Administered Last 24 Hrs: Meds Administered (Past 24Hrs) Medications (Trade) Dose Ordered Sig/Jose Route Start Time Stop Time Status Last Admin Dose Admin Bacitracin (Bacitracin Oint) 1 appln BID PRN EXT 06/08/17 12:00 07/08/17 11:59 06/08/17 16:10 1 APPLN Problem Qualifiers (1) Depression: Depression Type: other depression Qualified Codes: F32.89 - Other specified depressive episodes
[2017-06-10 06:57] VITALS: BP_SYST 103; BP_SYST 104; BP_DIAS 69; BP_DIAS 70; PULSE 54; PULSE 85; TEMP 36.8
[2017-06-10] MEDS: BACITRACIN OINT 15 GM TUBE EXT PRN (10:09)
--- NOTE | 2017-06-10 12:31 | Discharge Instructions ---
Discharge Information Report Includes Report will include the: Discharge Instructions & Summary Admission Admission Date / Time: Jun 08, 2017 at 06:46 Reason for Admission: Depression Nos Discharge Discharge Diagnosis / Problem: Depression not otherwise specified, self inflicted injury Condition at Discharge: Good Discharge Goals Goal(s): Improve function, Improve disease control, Learn about illness, Therapeutic intervention, Specific goals (Refer for outpatient services) Activity Recommendations Activity Limitations: per Instructions/Follow-up section . Instructions / Follow-Up Instructions / Follow-Up . SPECIAL CARE INSTRUCTIONS: 1. Follow through with your scheduled aftercare appointments. If unable to keep an appointment, please call to reschedule. 2. You are not on any medications. If mood worsens or you change your mind, you may want to consider a trial of an antidepressant. Work with your therapist to find healthy ways to cope in place of cutting. 3. Utilize new healthy coping skills, anger management skills, and stress management skills learned during your hospitalization. Journal feelings and process them with a support person. Identify stressors or situations that may result in relapse, deterioration or inappropriate behaviors and develop a plan to deal with those issues. 4. If your coping skills are ineffective and you are in crisis, contact your outpatient providers for direction. If unable to reach your providers, please call the CAN HELP LINE AT or go to the closest Emergency Room. 5. Avoid alcohol and un-prescribed drugs. 6. You have been provided with the Mental Health Advance Directives Pamphlet for your review. AFTERCARE APPOINTMENTS: * Please call your insurance company prior to your scheduled appointment to confirm your aftercare providers are covered. Take your insurance information to your appointments. . Discharge / Aftercare Planning Primary Care Physician: Name: suggest that you work with your insurance to become assigned to PCP Psychiatrist: Name: You will be assigned a psychiatirst after you intake. Therapist: Name Of Therapist: .[facility] Intake-[place] Date of Appointment: Jun 17, 2017 Time of Appointment: 1:00pm Data Processing Equipment Repairer: Name: Mckayla Rey Date of Appointment: Jun 14, 2017 Time of Appointment: 11am Appointment Notes: At your residence . Follow-Up Care Plan for Follow-Up Care: See above. Current Hospital Diet Patient's current hospital diet: Regular Diet Discharge Diet Recommended Diet: Regular Diet Procedures Procedures Performed: No Pending Studies Pending Studies at Discharge: No Medical Emergencies . Who to Call and When: Medical Emergencies: For questions or emergencies related to your hospital stay, please contact the Inpatient Behavioral Health Unit at [phone]. A skid worker is on-call 07/06 for the Behavioral Health Unit for emergencies At any time you feel your situation is an emergency, you may also call 911 immediately. . Non-Emergent Contact Non-Emergency issues call your: Primary Care Provider, Therapist, Data Processing Equipment Repairer Past History Medical & Surgical History: (1) Self-inflicted injury (2) Allergic rhinitis Advance Directives Existing Advance Directive: No Do You Have an Existing Mental: No Existing Living Will: No Existing Power of Vocational Horticulture Instructor: No Advance Directives Info Given: To Pt/S.O. Advance Directives Reason: Declines as Mental Health Visit. Discharge Summary Admission HPI Per the Admitting provider: The patient presented to the emergency room overnight with police, who had completed a 302 petition. The patient's mother contacted them after she saw a post on social media from the patient stating that she did not know what felt worse, a bottle of alcohol against her lips or a razor against her wrist. Her mother called the police to check on her, and they brought her to the emergency room. She had multiple self-inflicted lacerations on her left anterior forearm , and a deeper laceration for which she was seen in the emergency room and received 8 sutures on 06/06/2017. She stated that that injury was an accident, but admitted that she cuts herself to relieve depression. Her blood alcohol was 30, and she admitted to drinking 1-1/2 wine coolers. She endorsed multiple stressors, stating her boyfriend broke up with her that day, her mother took physical custody of her 4-year-old son, and she is facing felony charges with a court date today. She lives alone, has few supports, and no outpatient providers. On my assessment, the patient was seen with Lizzie Curtis, MS 3. She states that she has had multiple stressors recently. Two days ago she and her boyfriend were arrested for stealing at [facility], as they bought a TV, but were then stopped and accused of switching the tags so that they would not have to pay as much. Her boyfriend's mother then threatened to cut him off financially if he did not move out of the patient's apartment and come back home with her, so he did it. Late last night, her mother came to her house and took her 4-year -old son, who the patient says has been living with her for the past year. Patient said her mother told her she could only have supervised visits with her son because of her criminal charges. Her mother then sent her a message that she was coming to get the patient's dog, which the patient says is "the only thing I have left." She admits that she was drinking, stating she "wanted to go to sleep, get the night over with." She posted statements on social media, detailed above, although the patient states she posted the lyrics to a song called "Cut" by Becky which does not contain the above quote. She admits that she cut her left arm multiple times superficially, and states it was the first time she had cut in 3 years. She denies the deeper laceration which required sutures in the ER 2 days ago was a result of self-inflicted injury, and states that it occurred when she was trying to put together a glass entertainment unit , and it broke and fell onto her arm. She states that when the police arrived in her apartment last night, they told her she had to come with them to the emergency room, and that she only signed in voluntarily because she was told that she would be "302'd" otherwise. She admits to feeling sad and says "I'm depressed," but doesn't feel she needs to be in the hospital, and would like to go home she feels more comfortable there. She denies changes in appetite and weight, problems with energy or focus, crying spells, sleep difficulties, irritability, and suicidality. She does endorse hopelessness, stating "there is always that thoughts, but I try to be optimistic." She denies anhedonia, noting that she enjoys spending time with her son. She reports anxiety which she describes as feeling "overheated," which typically lasts a maximum of 2 minutes. She reports a history of one panic attack about 5 years ago, but denies other symptoms of panic and generalized anxiety disorder. She denies symptoms of kurt and psychosis. She notes that she does not want to be here, and has already signed a 72 hour notice. Admission Exam Per the Admitting provider: Please see admission H&P. Hospital Course (1) Depression Patient is declining antidepressant medication, stating that in the past, it made her feel worse. We reviewed other modalities for addressing low mood, including therapy, lifestyle changes, and addressing stressors. She is willing to consider a referral for outpatient therapy. She should attend and participate in unit groups and therapy, and work on healthy ways to cope to use in place of cutting. Recommend avoiding alcohol due to propensity to worsen mood and increased risk of self injury. Recommend family meeting and collateral information from mother, including confirming safety of the patient' s 4-year-old son. Could also consider medication to specifically target cutting , although she notes she has not cut in several years, and is not currently interested in medication. Will offer hydroxyzine as needed for anxiety and sleep while here. 06/09 - predominantly angry mood, and continues to deny suicidal thoughts and urges to cut. Poorly engaged in treatment, and acting out on the unit in an oppositional way. Suspect [place] component. 06/10 - Family meeting held with boyfriend, who is supportive, and denies concerns for patient's safety outside the hospital. She continues to deny SI and urges to cut, is willing to follow up with therapy and case management, and is requesting discharge. Unlikely to benefit from continued inpatient treatment , so will discharge to home. (2) Self-inflicted injury Bacitracin as needed to lacerations, keep clean and dry, and follow-up with suture removal in 8-10 days per emergency room recommendations. Attend groups and work on healthy ways to cope with distress and negative emotions. Get collateral information; there is some concern that her deeper laceration may be self-inflicted, as the pattern matches that of her other self inflicted lacerations, it is a clean, linear cut on the left forearm, and appears unlikely to have been sustained by a piece of following, broken glass. Referred for outpatient follow-up. 06/10 - Laceration healing well. Follow up for suture removal as directed by the ER. Referred for therapy, continue to work on healthy coping skills to use in place of cutting. (3) Cluster B personality disorder Displays borderline, histrionic, and antisocial personality traits. (4) Unprotected sex Patient has been having unprotected sex and trying to get . Her last period was about 2 weeks ago, and her test on admission was negative. She should follow up with an KINESIOLOGY PROFESSOR, and would recommend she not try to get until her mood has stabilized. 06/10 - Patient advised to utilize control (has oral contraceptives at home ) and to postpone until she is more stable. Follow up with OB-FLEXOGRAPHIC PRINTING MACHINIST. Risk Factors Assessment : Yes /single/: Yes Higher / Fall in social status: No Access to guns: No Health problems: No Mental Health Diagnoses: Yes Substance use disorders: No Previous attempt: No Family history of suicide: No Previous psychiatric stay: Yes Hopelessness: Yes Smoker: Yes Protective Factors Assessment Confucianist beliefs: No : No Responsible for young children: No Employed: No Stable relationships: No Supportive family: No Good rapport with provider: No Absence of risk factors above: Yes (risk factors were mitigated by admitting the patient to the inpatient unit, offering medication to target mood which she declined, involving her in groups and therapy, working on healthy coping skills and her discharge safety plan, a family meeting with her boyfriend, and referring her for increased outpatient supports. Throughout her treatment here , she has denied thoughts of suicide and urges to harm herself, and has not engaged in self-injurious behavior. She has demonstrated improvement in mood, and is willing to follow-up with outpatient providers. She is requesting discharge, and that she is no longer at acute risk of harm to herself, can be managed as an outpatient at this time. She does not have significant risk factors for harm to others. She does have a chronic elevated risk for self- harm due to her history of untreated mood disorder and self injury by cutting, but remaining risk factors are unlikely to be mitigated by further inpatient treatment.) Day of Discharge Assessment Hospital course: On admission, the patient was diagnosed with depression was offered antidepressant medication, which she declined, stating that medications have never helped her in the past. She was very angry about being admitted to the hospital, and immediately submitted a 72 hour notice requesting to withdraw from treatment. She was angry that she had to have her roommate, and was demanding to be transferred to another facility with a private room. She displayed some provocative and oppositional behavior on the unit, repeatedly erasing her name from the sign on her door, and writing inappropriate messages on the white board's around the unit. She was frequently rude with staff, swearing and inappropriate in her interactions. Her first night in the hospital , she went to her room and ripped up all of her admission papers and her patient workbook, and scattered them all over the floor. She threw her personal items and mattress on the floor as well. She initially refused to attend or participate in groups, but became more interactive throughout the course of her stay, and began attending groups towards the end. She performed ADLs independently, and was eating and sleeping well. She only slept for 1 hour her first night on the unit, but sleep was significantly better the following night. The laceration on her left forearm was monitored, and bacitracin ordered for itchiness. It appeared to be healing well, and she stated she planned follow-up in the emergency room as directed for suture removal. She continued to deny that the deeper cut was self inflicted, and stated that it was caused by a glass entertainment center falling on her arm, although this was not consistent with the appearance of injury. She was agreeable to a referral for a blended rifle case repairer, who came to meet with her on the unit, and to a therapist. She had a family meeting with her boyfriend and best friend of the day of discharge, and they were supportive and felt she was safe to be released. Day of discharge assessment: The patient was seen with Lizzie Cox, MS 3. She states that her mood is improved, and she is very happy to learn that her friend and neighbor had prevented her mother from taking her dog, saying "so I have that to look forward to." She denies feeling depressed, denies thoughts of harming herself or anyone else, and feels she is ready for discharge. She was not sure if she and her boyfriend had broken up, but they were very affectionate throughout their family meeting, although he admitted he has to sneak out to see the patient as his parents don't like her. She maintains that she is willing to follow-up with her rifle case repairer and therapist, and feels she has a good support system with her friends and boyfriend. She was able to complete her discharge safety plan, and feels safe going home. Well nourished, well developed WF appearing stated age. Casually dressed and adequately groomed. Calm and cooperative. Seated in NAD, with fair eye contact and no abnormal movements. Speech is normal rate, volume, and tone. Mood is "really good," and affect is stable and congruent. Thoughts are linear , logical and goal directed. The patient denied suicidal and homicidal ideation and was able to safety plan. No paranoia, delusions, or hallucinations , and did not appear to be responding to internal stimuli. Cognition was grossly intact. Alert and oriented to person, place and time. Intelligence is consistent with level of education. Insight and and judgment are fair. Laboratory Test 06/08/17 03:53 06/08/17 03:55 White Blood Count 8.06 Red Blood Count 4.93 Hemoglobin 13.9 Hematocrit 40.4 Mean Corpuscular Volume 81.9 Mean Corpuscular Hemoglobin 28.2 Mean Corpuscular Hemoglobin Concent 34.4 RDW Standard Deviation 39.0 RDW Coefficient of Variation 13.0 Platelet Count 346 Mean Platelet Volume 8.4 Sodium Level 142 Potassium Level 3.7 Chloride Level 111 Carbon Dioxide Level 24 Anion Gap 7.0 Blood Urea Nitrogen 5 Creatinine 0.63 Est Creatinine Clear Calc Drug Dose 134.9 Estimated GFR () 148.6 Estimated GFR (Non- 128.2 BUN/Creatinine Ratio 8.2 Random Glucose 110 Calcium Level 8.1 Total Bilirubin 0.1 Direct Bilirubin < 0.1 Aspartate Amino Transferase (AST) 18 Alanine Aminotransferase (ALT) 33 Alkaline Phosphatase 66 Total Protein 6.2 Albumin 3.3 Thyroid Stimulating Hormone (TSH) 1.070 Salicylates Level < 1.7 Acetaminophen Level < 2 Ethyl Alcohol mg/dL 30.0 Urine Color YELLOW Urine Appearance CLOUDY Urine pH 6.5 Urine Specific Burton 1.008 Urine Protein NEG Urine Glucose (UA) NEG Urine Ketones NEG Urine Occult Blood TRACE Urine Nitrite NEG Urine Bilirubin NEG Urine Urobilinogen NEG Urine Leukocyte Esterase MODERATE Urine WBC (Auto) >30 Urine RBC (Auto) 0-4 Urine Hyaline Casts (Auto) 1-5 Urine Epithelial Cells (Auto) >30 Urine Bacteria (Auto) 2+ Urine Test NEG Urine Opiates Screen NEG Urine Methadone, Qualitative NEG Urine Barbiturates NEG Urine Phencyclidine (PCP) Level NEG Ur Amphetamine/Methamphetamine NEG MDMA (Ecstasy) Screen NEG Urine Benzodiazepines Screen NEG Urine Cocaine Metabolite NEG Urine Marijuana (THC) NEG Total Time Total Time Spent (min): Greater than 30 minutes Total Time Included: examination of the patient, discharge planning, medication reconciliation Tobacco Cessation at Discharge Smoking Status: Light Tobacco Smoker FDA approved Prescription: declined med & out pt counseling Problem Qualifiers (1) Depression: Depression Type: other depression Qualified Codes: F32.89 - Other specified depressive episodes
== END 2017-06-10 14:55 | disposition home or self-care (01) | DRG 885 ==
LOC: C.EDB 03:12 → C.MHU 06:46
PROVIDERS: ADMIT Psychiatry & Neurology Psychiatry; ATTEND Psychiatry & Neurology Psychiatry
DX: F32.89 Other specified depressive episodes (principal); S51.812A Laceration without foreign body of left forearm, initial encounter; X78.8XXA Intentional self-harm by other sharp object, initial encounter; S51.812D Laceration without foreign body of left forearm, subsequent encounter; W25.XXXD Contact with sharp glass, subsequent encounter; F17.200 Nicotine dependence, unspecified, uncomplicated; Z91.5 Personal history of self-harm; Z53.29 Procedure and treatment not carried out because of patient's decision for other reasons; Z65.3 Problems related to other legal circumstances; Z72.89 Other problems related to lifestyle; Z63.79 Other stressful life events affecting family and household

== ENCOUNTER 2017-06-17 15:20 | Emergency (ER) | payer OTHER ==
[~2017-06-17] VITALS: Ht 157.5 cm; Wt 75.3 kg
[2017-06-17 15:34] VITALS: BP 105/68; PULSE 76; TEMP 36.8; O2SAT 98; Ht 157.5 cm; Wt 75.3 kg
--- NOTE | 2017-06-17 15:51 | EMERGENCY ROOM VISIT NOTE ---
ED Visit Note First contact with patient: 15:36 CHIEF COMPLAINT: Suture removal HISTORY OF PRESENT ILLNESS: This 22-year-old female patient returns to the ED today for removal of sutures that were placed about 10 days ago. The patient was initially seen by myself following a forearm laceration. She had been putting together a home entertainment center when a piece of glass cut her arm. Since that initial visit the patient did have worsening depression and returned where she was admitted voluntarily after cutting her right arm. There has been no swelling, redness, or drainage from the wound. The wounds on the right arm are well healing. The patient feels like the left forearm laceration is healing well. REVIEW OF SYSTEMS: A 6 system review of systems was completed with positives and pertinent negatives listed in the HPI. PMH: Unchanged from previous visit. ALLERGIES: No known allergies PHYSICAL EXAM: Vital Signs: Reviewed Nurse's notes, vital signs stable. GENERAL : White female, in no acute distress. SKIN: There is a sutured wound on the left forearm with no signs of infection. There is no erythema, swelling, or tenderness. Superficial healing lacerations are appreciated to the right forearm without evidence of infection. EMERGENCY DEPARTMENT COURSE: Physical exam and history were performed. The patient has 8 sutures in her left forearm that were removed without difficulty. There was some slight widening in the very central aspect of the laceration, and while this did not cause dehiscence, I did feel that it was important to place Steri-Strips for some additional support the next few days. The patient continues to be in good spirits. She does not have worsening depressive symptoms and does not have additional complaints. She'll be discharged with instructions as below invited back to the ER with any new, worsening, or concerning symptoms. Current/Historical Medications No Active Prescriptions or Reported Meds Allergies Coded Allergies: No Known Allergies (Unverified , 06/17/17) Vital Signs Date Time Temp Pulse Resp B/P (MAP) Pulse Ox O2 Delivery O2 Flow Rate FiO2 06/17/17 15:34 36.8 76 18 105/68 98 Room Air Departure Information Impression Primary Impression: Encounter for removal of sutures Dispostion Home / Self-Care Condition GOOD Prescriptions No Active Prescriptions or Reported Meds Referrals No Doctor, Assigned (PCP) Forms HOME CARE DOCUMENTATION FORM, IMPORTANT VISIT INFORMATION Patient Instructions My [facility] Additional Instructions Your Steri-Strips will fall off the next 2-3 days. Afterwards you may return to activity is normal.
== END 2017-06-17 15:55 | disposition home or self-care (01) ==
LOC: C.EDB 15:28 → C.EDD 15:55
DX: Z48.02 Encounter for removal of sutures (principal)

== ENCOUNTER 2017-06-19 01:11 | Emergency (ER) | payer OTHER ==
[~2017-06-19] VITALS: Ht 157.5 cm; Wt 74.2 kg
[2017-06-19 01:14] VITALS: BP 122/82; PULSE 70; TEMP 37.5; O2SAT 98; Ht 157.5 cm; Wt 74.2 kg
--- NOTE | 2017-06-19 04:48 | EMERGENCY ROOM VISIT NOTE ---
History First contact with patient: 01:17 Chief Complaint: WOUND RECHECK Stated Complaint: STITCHES TAKEN OUT ON THE 3RD WOUND RE OPENED Nursing Triage Summary: pt has old laceration to left forearm. stitches removed on 06/17/17. glue and steri strips applied. pt reports steri strips fell off and wound still open. no drainage noted. History of Present Illness The patient is a 22 year old female who presents to the Emergency Room for a wound recheck. The patient suffered a laceration to her left forearm about 2 weeks ago, where the wound was repaired by myself. Her stitches were removed 2 days ago, and she states that the wound has reopened. She denies manipulation or scrubbing of the wound. She has not had fever or chills. She does not report new injury. There has not been active bleeding. Review of Systems More than 10 systems were reviewed and otherwise negative with the exception of history of present illness. Past Medical/Surgical History Medical Problems: (1) Cluster B personality disorder (2) Depression (3) No significant past medical history Surgical Problems: (1) No history of previous surgery Social History Problems: (1) Unprotected sex Family History Patient reports no known family medical history. Social History Smoking Status: Current Every Day Smoker Alcohol Use: occasionally Drug Use: none Marital Status: single Housing Status: lives with friends Occupation Status: unemployed Current/Historical Medications No Active Prescriptions or Reported Meds Physical Exam Vital Signs Date Time Temp Pulse Resp B/P (MAP) Pulse Ox O2 Delivery O2 Flow Rate FiO2 06/19/17 01:14 37.5 70 20 122/82 98 Room Air Pain Rating (0-10): 0 Physical Exam VITALS: Vitals are noted on the nurse's note and reviewed by myself. Vital signs stable. GENERAL: Well-developed, well-nourished, white female, who is in no acute distress and resting comfortably. Patient is cooperative with the examination. HEART: Regular rate and rhythm without murmurs gallops or rubs. LUNGS: Clear to auscultation bilaterally without wheezes, rales or rhonchi. No retractions or accessory muscle use. SKIN: The skin was with a laceration on the left forearm that appears with some medial and central dehiscence. The lateral aspect appears well healing. There is no evidence of infection. The wound appears with signs of healing by secondary intention without significant depth to the laceration. Medical Decision & Procedures ED Course Physical exam and history were performed. Nursing notes, EMR, and Medication List were personally reviewed. Patient appears to have a dehisced laceration to her left forearm. I did see the wound 2 days ago at the time of suture removal, and it does appear to be worse than 2 days ago. She does not have her Steri-Strips in place, as she evidently remove them. The wound appears to be healing by secondary intention. The patient was recently admitted to this facility for mental health evaluation after starting to cut herself as she has done in the past. She denies manipulating or intentionally aggravating her laceration. The wound certainly is not a candidate for reclosure as it has been nearly 2 weeks since the initial injury. I explained conservative management including bandaging and antibiotic ointment. I have concern that she is not taking care of her laceration well and this is contributing to the symptoms. The patient does not have suicidal or homicidal ideology at this time. I did have a lengthy conversation with her regarding her care and she was admitted back to the emergency department anytime. The chart was completed utilizing [employer] Speech Voice Recognition Software. Grammatical errors, random word insertions, pronoun errors, and incomplete sentences are an occasional consequence of this system due to software limitations, ambient noise, and hardware issues. Any formal questions or concerns about the content, text, or information contained within the body of this dictation should be directly addressed to the provider for clarification. . Medical Decision Differential diagnosis includes, but is not limited to: Laceration, abrasion, infection, intentional harm, self mutilating behavior, and others Impression Primary Impression: Encounter for wound re-check Additional Impression: Wound dehiscence Departure Information Dispostion Home / Self-Care Condition GOOD Prescriptions No Active Prescriptions or Reported Meds Forms HOME CARE DOCUMENTATION FORM, IMPORTANT VISIT INFORMATION Patient Instructions My [facility] Additional Instructions You were seen and evaluated today on an emergency basis only. This is not a substitute for, or an effort to provide, complete comprehensive medical care. It is not possible to recognize and treat all injuries or illnesses in a single emergency department visit. For this reason it is recommended that you followup with your primary care physician this week for recheck. Continue to bandage the wound for the next 3-4 days. You are welcome to return to the emergency department anytime with new, worsening, or concerning symptoms. Problem Qualifiers
== END 2017-06-19 01:34 | disposition home or self-care (01) ==
LOC: C.EDB 01:13
DX: S51.812D Laceration without foreign body of left forearm, subsequent encounter (principal); W25.XXXD Contact with sharp glass, subsequent encounter; T81.33XD Disruption of traumatic injury wound repair, subsequent encounter; Y84.8 Other medical procedures as the cause of abnormal reaction of the patient, or of later complication, without mention of misadventure at the time of the procedure; F17.210 Nicotine dependence, cigarettes, uncomplicated; F32.89 Other specified depressive episodes; Z91.5 Personal history of self-harm

== ENCOUNTER 2017-06-23 18:29 | Emergency (ER) | payer OTHER ==
[~2017-06-23] VITALS: Ht 157.5 cm; Wt 73.3 kg
[2017-06-23 18:36] VITALS: TEMP 36.5; Ht 157.5 cm; Wt 73.3 kg
[2017-06-23] MEDS ORDERED: ACETAMINOPHEN 500 MG TAB PO STA (19:13)
--- NOTE | 2017-06-23 19:14 | EMERGENCY ROOM VISIT NOTE ---
History Report prepared by Martha: Aquilino Harper Under the Supervision of: Pepe GriggsO. First contact with patient: 18:58 Chief Complaint: ABDOMINAL PAIN Stated Complaint: ABD APIN Nursing Triage Summary: Patient with c/o of lower abdominal pain and decreased appetite today. Period 1 1/2 weeks late. History of Present Illness The patient is a 22 year old female who presents to the Emergency Room with complaints of ache-like intermittent lower abdominal pain that began today. She rates her pain a 3/10 in severity. She has also been experiencing severe nausea after eating for the past week and a half. She denies any fevers, chills, vomiting, back pain, hematochezia, melena, diarrhea, and abnormal urinary symptoms. She does not have a history of abdominal issues or surgeries. She states that position does not change her symptoms. Her menstrual period is 1.5 weeks late, and she does not know if she is or not. Source of History: patient Onset: today Position: abdomen (lower) Symptom Intensity: 3/10 Quality: ache Timing: intermittent Modifying Factors (Worsening): other (N/A) Associated Symptoms: + nausea, No fevers, No chills, No vomiting, No back pain, No melena, No hematochezia, No diarrhea, No urinary symptoms Review of Systems See HPI for pertinent positives & negatives. A total of 10 systems reviewed and were otherwise negative. Past Medical & Surgical Medical Problems: (1) Cluster B personality disorder (2) Depression (3) No significant past medical history Surgical Problems: (1) No history of previous surgery Social History Problems: (1) Unprotected sex Family History Patient reports no known family medical history. Social History Smoking Status: Former Smoker Alcohol Use: occasionally Drug Use: none Marital Status: single Housing Status: lives with friends Occupation Status: unemployed Current/Historical Medications Scheduled Cephalexin (Keflex), 1 CAP PO BID Allergies Coded Allergies: No Known Allergies (Unverified , 06/23/17) Physical Exam Vital Signs Date Time Temp Pulse Resp B/P (MAP) Pulse Ox O2 Delivery O2 Flow Rate FiO2 06/23/17 22:07 78 20 116/74 98 Room Air 06/23/17 19:56 76 20 110/66 98 06/23/17 18:36 36.5 89 16 119/81 97 Room Air Physical Exam GENERAL: alert, well appearing, well nourished, no distress, non-toxic EYE EXAM: normal conjunctiva, PERRL and EOM's grossly intact OROPHARYNX: no exudate, no erythema, lips, buccal mucosa, and tongue normal and mucous membranes are moist NECK: supple, no nuchal rigidity, no adenopathy, non-tender LUNGS: Clear to auscultation. Normal chest wall mechanics HEART: no murmurs, S1 normal and S2 normal ABDOMEN: abdomen soft, non-tender, normo-active bowel sounds, no masses, no rebound or guarding. BACK: Back is symmetrical on inspection and there is no deformity, no midline tenderness, no CVA tenderness. SKIN: no rashes and no bruising UPPER EXTREMITIES: upper extremities are grossly normal. LOWER EXTREMITIES: No pitting edema. NEURO EXAM: Normal sensorium, cranial nerves II-XII grossly intact, normal speech, no gross weakness of arms, no gross weakness of legs. Medical Decision & Procedures Laboratory Results 06/23/17 19:30 Red Blood Count 4.89, Mean Corpuscular Volume 83.0, Mean Corpuscular Hemoglobin 28.8, Mean Corpuscular Hemoglobin Concent 34.7, Mean Platelet Volume 8.6, Neutrophils (%) (Auto) 68.7, Lymphocytes (%) (Auto) 20.3, Monocytes (%) (Auto) 9.6, Eosinophils (%) (Auto) 0.7, Basophils (%) (Auto) 0.4, Neutrophils # (Auto) 4.84, Lymphocytes # (Auto) 1.43, Monocytes # (Auto) 0.68, Eosinophils # (Auto) 0.05, Basophils # (Auto) 0.03 06/23/17 19:30 Test 06/23/17 18:55 06/23/17 19:30 Urine Color DK YELLOW Urine Appearance CLOUDY (CLEAR) Urine pH 5.5 (4.5-7.5) Urine Specific [place] 1.027 (1.000-1.030) Urine Protein TRACE (NEG) Urine Glucose (UA) NEG (NEG) Urine Ketones TRACE (NEG) Urine Occult Blood TRACE (NEG) Urine Nitrite NEG (NEG) Urine Bilirubin NEG (NEG) Urine Urobilinogen NEG (NEG) Urine Leukocyte Esterase NEG (NEG) Urine WBC (Auto) 10-30 /hpf (0-5) Urine RBC (Auto) 5-10 /hpf (0-4) Urine Hyaline Casts (Auto) 10-30 /lpf (0-5) Urine Epithelial Cells (Auto) >30 /lpf (0-5) Urine Bacteria (Auto) 1+ (NEG) White Blood Count 7.05 K/uL (4.8-10.8) Red Blood Count 4.89 M/uL (4.2-5.4) Hemoglobin 14.1 g/dL (12.0-16.0) Hematocrit 40.6 % (37-47) Mean Corpuscular Volume 83.0 fL (80-100) Mean Corpuscular Hemoglobin 28.8 pg (25-34) Mean Corpuscular Hemoglobin Concent 34.7 g/dl (32-36) Platelet Count 309 K/uL (130-400) Mean Platelet Volume 8.6 fL (7.4-10.4) Neutrophils (%) (Auto) 68.7 % Lymphocytes (%) (Auto) 20.3 % Monocytes (%) (Auto) 9.6 % Eosinophils (%) (Auto) 0.7 % Basophils (%) (Auto) 0.4 % Neutrophils # (Auto) 4.84 K/uL (1.4-6.5) Lymphocytes # (Auto) 1.43 K/uL (1.2-3.4) Monocytes # (Auto) 0.68 K/uL (0.11-0.59) Eosinophils # (Auto) 0.05 K/uL (0-0.5) Basophils # (Auto) 0.03 K/uL (0-0.2) RDW Standard Deviation 38.4 fL (36.4-46.3) RDW Coefficient of Variation 12.8 % (11.5-14.5) Immature Granulocyte % (Auto) 0.3 % Immature Granulocyte # (Auto) 0.02 K/uL (0.00-0.02) Anion Gap 6.0 mmol/L (3-11) Est Creatinine Clear Calc Drug Dose 98.2 ml/min Estimated GFR () 113.5 Estimated GFR (Non- 97.9 BUN/Creatinine Ratio 7.7 (10-20) Calcium Level 9.0 mg/dl (8.5-10.1) Total Bilirubin 0.4 mg/dl (0.2-1) Aspartate Amino Transf (AST/SGOT) 9 U/L (15-37) Alanine Aminotransferase (ALT/SGPT) 18 U/L (12-78) Alkaline Phosphatase 76 U/L (45-117) Total Protein 7.0 gm/dl (6.4-8.2) Albumin 3.6 gm/dl (3.4-5.0) Globulin 3.4 gm/dl (2.5-4.0) Albumin/Globulin Ratio 1.1 (0.9-2) Lipase 93 U/L (73-393) Human Chorionic Gonadotropin, Qual NEG (NEG) Date/Time Source Procedure Growth Status 06/23/17 18:55 Urine , Clean Catch Urine Culture - Final MORE THAN THREE TYPES OF ORGANISMS CO... Complete Laboratory results per my review. Medications Administered Medications (Trade) Dose Ordered Sig/Jose Route Start Time Stop Time Status Last Admin Dose Admin Acetaminophen (Tylenol Tab) 1,000 mg NOW STAT PO 06/23/17 19:13 06/23/17 19:15 DC 06/23/17 19:54 1,000 MG Cephalexin Monohydrate (Keflex Cap) 500 mg NOW ONCE PO 06/23/17 21:30 06/23/17 21:31 DC 06/23/17 21:36 500 MG Phenazopyridine HCl (Pyridium Tab) 200 mg NOW STAT PO 06/23/17 21:30 06/23/17 21:31 DC 06/23/17 21:36 200 MG ED Course 8: The patient was evaluated in room C10. A complete history and physical exam was performed. 1912: Ordered Tylenol Tab 1000 mg PO 2129: Ordered Pyridium Tab 200 mg PO, Keflex Cap 500 mg PO 0: The patient is refusing the chest x-ray because she believes that she is , regardless of her negative lab test here in the ED. 2229: Upon reevaluation, the patient is feeling better. I discussed the findings and the treatment plan with the patient. She verbalizes agreement and understanding. She was discharged home. Medical Decision Differential diagnosis: Etiologies such as appendicitis, diverticulitis, PUD, biliary pathology, UTI, pancreatitis, obstruction, mesenteric ischemia, aortic pathology, infections, inflammatory bowel disease, renal colic, as well as others were entertained. Pt well appearing here. Labs and UA reassuring. Pt refused xrays as she states she is convinced she is despite negative testing. No vomiting or diarrhea while in the ER. No f/c. VS stable. Doubt occult significant GI or pathology. Doubt ectopic, PID, torsion, TOA. Pt did wish to undergo any additional imaging including US, asked to leave. Pt treated for UTI. Culture sent as a precaution. Doubt bacteremia/sepsis, doubt pyelo, no hx to suggest concurrent stone. Medication Reconcilliation Current Medication List: was personally reviewed by me Blood Pressure Screening Patient's blood pressure: Normal blood pressure Blood pressure disposition: Did not require urgent referral Impression Primary Impression: Lower abdominal pain Additional Impression: UTI (urinary tract infection) Scribe Attestation The scribe's documentation has been prepared under my direction and personally reviewed by me in its entirety. I confirm that the note above accurately reflects all work, treatment, procedures, and medical decision making performed by me. Departure Information Dispostion Home / Self-Care Prescriptions Cephalexin (KEFLEX) 500 Mg Cap 1 CAP PO BID for 5 Days, #10 CAP Prov: Comfort Domingo, 06/23/17 Referrals No Doctor, Assigned (PCP) Forms HOME CARE DOCUMENTATION FORM, IMPORTANT VISIT INFORMATION Patient Instructions My [facility] Additional Instructions Please take the antibiotics as prescribed. If you have any worsening pain, develop fevers, back pain, vomiting, are unable to urinate, or you have any other new or concerning symptoms, please return to the emergency room. Please consider taking probiotics while you are taking the antibiotics. If your menstrual cycles continue to be irregular, please follow-up with your flask maker. Problem Qualifiers Additional Impression: UTI (urinary tract infection) Urinary tract infection type: acute cystitis Hematuria presence: with hematuria Qualified Codes: N30.01 - Acute cystitis with hematuria
[2017-06-23 19:40] LABS: URINE APPEARANCE CLOUDY (CLEAR); URINE BILIRUBIN NEG (NEG); URINE COLOR DK YELLOW; URINE EPITHELIAL CELL AUTO >30 /lpf (0-5); URINE NITRITE NEG (NEG); URINE PH 5.5 (4.5-7.5); URINE SPECIFIC GRAVITY 1.027 (1.000-1.030); UROBILINOGEN NEG (NEG); ZZUR CULT IF INDIC CLEAN CATCH YES
[2017-06-23 19:44] LABS: BASO % 0.4 %; BASO ABS # 0.03 K/uL (0-0.2); COMPLETE YES; EOS % 0.7 %; HEMATOCRIT 40.6 % (37-47); IG% 0.3 %; LYMPH % 20.3 %; LYMPH ABS # 1.43 K/uL (1.2-3.4); MEAN CORPUSCULAR HEMOGLOBIN 28.8 pg (25-34); MEAN CORPUSCULAR HGB CONC 34.7 g/dl (32-36); MEAN PLATELET VOLUME 8.6 fL (7.4-10.4); MONO % 9.6 %; NEUT % 68.7 %; PLATELET COUNT 309 K/uL (130-400); RED BLOOD COUNT 4.89 M/uL (4.2-5.4); WHITE BLOOD COUNT 7.05 K/uL (4.8-10.8)
[2017-06-23 20:00] LABS: BUN/CREATININE RATIO 7.7 (10-20); CREATININE 0.85 mg/dl (0.60-1.20); POTASSIUM 3.5 mmol/L (3.5-5.1)
[2017-06-23 20:02] LABS: MANUAL MICROSCOPIC REQUIRED? NO; REVIEW REQ? YES
[2017-06-23 20:03] LABS: ALB/GLOB RATIO 1.1 (0.9-2)
[2017-06-23 20:06] LABS: PREG INTERNAL NEGATIVE QC NEG CLEAR BACKGROUND; PREG INTERNAL POSITIVE QC POS CONTROL LINE
[2017-06-23] MEDS ORDERED: CEPHALEXIN MONOHYDRATE 250 MG CAP PO ONE (21:30)
[2017-06-23] MEDS ORDERED: PHENAZOPYRIDINE HCL 200 MG TAB PO STA (21:30)
[2017-06-23 22:07] VITALS: BP 116/74; PULSE 78; O2SAT 98
[2017-06-23] MEDS ORDERED: CEPH-571 PO (22:14)
== END 2017-06-23 22:47 | disposition home or self-care (01) ==
LOC: C.EDB 18:30 → C.EDC 22:47
DX: R10.30 Lower abdominal pain, unspecified (principal); N39.0 Urinary tract infection, site not specified; R63.0 Anorexia; Z87.891 Personal history of nicotine dependence; F60.89 Other specific personality disorders

== ENCOUNTER 2017-07-27 17:40 | Emergency (ER) | payer OTHER ==
[~2017-07-27] VITALS: Ht 157.5 cm; Wt 75.3 kg
[2017-07-27 17:52] VITALS: TEMP 36.7; Ht 157.5 cm; Wt 75.3 kg
[2017-07-27] MEDS ORDERED: SODIUM CHLORIDE 0.9% 1000ML 1,000 ML IV STA (18:30)
[2017-07-27] MEDS ORDERED: ONDANSETRON INJ 2 MG/ML 2 ML VIAL IV STA (18:30)
--- NOTE | 2017-07-27 18:54 | EMERGENCY ROOM VISIT NOTE ---
History Report prepared by Martha: Martine Bowers Under the Supervision of: Dr. Angelo Cottrell D.O. First contact with patient: 18:27 Chief Complaint: ABDOMINAL PAIN Stated Complaint: ABD PAIN, NAUSEA Nursing Triage Summary: LMP over 1 month ago. Not feeling well for the past week. denies vaginal bleeding History of Present Illness The patient is a 22 year old female who presents to the Emergency Room with complaints of intermittent abdominal pain beginning 1 week ago. The patient states that her LNMP was over 1 month ago. She reports that she has been having intense lower abdominal cramping in the last week that is unlike anything that she has had before. She notes that she has been before and was not aware of the until 3 months in. The patient denies any urinary symptoms and vaginal bleeding. She notes that she could be and that she has only taken Tylenol for her pain. Source of History: patient Onset: 1 week ago Position: abdomen Timing: constant Associated Symptoms: No urinary symptoms Note: She complains of cramping. Pt denies vaginal bleeding. Review of Systems See HPI for pertinent positives & negatives. A total of 10 systems reviewed and were otherwise negative. Past Medical & Surgical Medical Problems: (1) No Known Active Medical Problems Family History No pertinent family history stated. Social History Smoking Status: Current Every Day Smoker Smokeless Tobacco Use: No Alcohol Use: none Drug Use: none Marital Status: single Current/Historical Medications No Active Prescriptions or Reported Meds Allergies Coded Allergies: No Known Allergies (Unverified , 07/27/17) Physical Exam Vital Signs Date Time Temp Pulse Resp B/P (MAP) Pulse Ox O2 Delivery O2 Flow Rate FiO2 07/27/17 20:45 83 16 112/77 99 07/27/17 19:39 93 16 123/73 100 Room Air 07/27/17 19:12 102 07/27/17 17:52 36.7 70 18 110/77 95 Room Air Physical Exam GENERAL: Patient is awake, alert, and in no acute distress. Patient is resting comfortably and showing no signs of anxiety EYES: The conjunctivae are clear. The pupils are round and reactive. EARS, NOSE, MOUTH AND THROAT: The nose is without any evidence of any deformity. Mucous membranes are moist tongue is midline NECK: The neck is nontender and supple. RESPIRATORY: Normal respiratory effort is noted there is no evidence of wheezing rhonchi or rales CARDIOVASCULAR: Regular rate and rhythm noted there no murmurs rubs or gallops normal S1 normal S2 GASTROINTESTINAL: The abdomen is soft. Bowel sounds are present in all quadrants. Abdomen is nontender MUSCULOSKELETAL/EXTREMITIES: There is no evidence of gross deformity full range of motion is noted in the hips and shoulders SKIN: There is no obvious evidence of any rash. There are no petechiae, pallor or cyanosis noted. NEUROLOGIC: Patient is awake alert and oriented x3 Medical Decision & Procedures Laboratory Results 07/27/17 18:35 Red Blood Count 4.85, Mean Corpuscular Volume 82.3, Mean Corpuscular Hemoglobin 28.9, Mean Corpuscular Hemoglobin Concent 35.1, Mean Platelet Volume 8.6, Neutrophils (%) (Auto) 66.4, Lymphocytes (%) (Auto) 19.1, Monocytes (%) (Auto) 11.6, Eosinophils (%) (Auto) 2.2, Basophils (%) (Auto) 0.4, Neutrophils # (Auto ) 6.06, Lymphocytes # (Auto) 1.75, Monocytes # (Auto) 1.06, Eosinophils # (Auto ) 0.20, Basophils # (Auto) 0.04 07/27/17 18:35 Test 07/27/17 18:35 07/27/17 18:50 White Blood Count 9.14 K/uL (4.8-10.8) Red Blood Count 4.85 M/uL (4.2-5.4) Hemoglobin 14.0 g/dL (12.0-16.0) Hematocrit 39.9 % (37-47) Mean Corpuscular Volume 82.3 fL (80-100) Mean Corpuscular Hemoglobin 28.9 pg (25-34) Mean Corpuscular Hemoglobin Concent 35.1 g/dl (32-36) Platelet Count 339 K/uL (130-400) Mean Platelet Volume 8.6 fL (7.4-10.4) Neutrophils (%) (Auto) 66.4 % Lymphocytes (%) (Auto) 19.1 % Monocytes (%) (Auto) 11.6 % Eosinophils (%) (Auto) 2.2 % Basophils (%) (Auto) 0.4 % Neutrophils # (Auto) 6.06 K/uL (1.4-6.5) Lymphocytes # (Auto) 1.75 K/uL (1.2-3.4) Monocytes # (Auto) 1.06 K/uL (0.11-0.59) Eosinophils # (Auto) 0.20 K/uL (0-0.5) Basophils # (Auto) 0.04 K/uL (0-0.2) RDW Standard Deviation 38.4 fL (36.4-46.3) RDW Coefficient of Variation 12.7 % (11.5-14.5) Immature Granulocyte % (Auto) 0.3 % Immature Granulocyte # (Auto) 0.03 K/uL (0.00-0.02) Anion Gap 7.0 mmol/L (3-11) Est Creatinine Clear Calc Drug Dose 120.8 ml/min Estimated GFR () 143.5 Estimated GFR (Non- 123.9 BUN/Creatinine Ratio 9.9 (10-20) Calcium Level 8.2 mg/dl (8.5-10.1) Total Bilirubin 0.3 mg/dl (0.2-1) Direct Bilirubin < 0.1 mg/dl (0-0.2) Aspartate Amino Transf (AST/SGOT) 13 U/L (15-37) Alanine Aminotransferase (ALT/SGPT) 24 U/L (12-78) Alkaline Phosphatase 60 U/L (45-117) Total Protein 6.2 gm/dl (6.4-8.2) Albumin 3.1 gm/dl (3.4-5.0) Lipase 150 U/L (73-393) Human Chorionic Gonadotropin, Qual POS (NEG) Human Chorionic Gonadotropin, Quant 729 mIU/mL Urine Color YELLOW Urine Appearance CLOUDY (CLEAR) Urine pH 5.5 (4.5-7.5) Urine Specific [place] 1.028 (1.000-1.030) Urine Protein NEG (NEG) Urine Glucose (UA) NEG (NEG) Urine Ketones NEG (NEG) Urine Occult Blood TRACE (NEG) Urine Nitrite NEG (NEG) Urine Bilirubin NEG (NEG) Urine Urobilinogen NEG (NEG) Urine Leukocyte Esterase TRACE (NEG) Urine WBC (Auto) 10-30 /hpf (0-5) Urine RBC (Auto) 5-10 /hpf (0-4) Urine Hyaline Casts (Auto) 1-5 /lpf (0-5) Urine Epithelial Cells (Auto) >30 /lpf (0-5) Urine Bacteria (Auto) 1+ (NEG) Laboratory results per my review. Medications Administered Medications (Trade) Dose Ordered Sig/Jose Route Start Time Stop Time Status Last Admin Dose Admin Sodium Chloride 1,000 ml @ 999 mls/hr Q1H1M STAT IV 07/27/17 18:30 07/27/17 19:30 DC 07/27/17 18:51 999 MLS/HR ED Course 1826: The patient was evaluated in room B5. A complete history and physical examination were performed. 1829: Zofran Inj 4mg IV, NSS 1,000 ml @ 999 mls/hr IV. 2026: Upon reevaluation, the patient is doing well. I discussed the results and treatment plan with the patient. She verbalized agreement of the treatment plan. The patient was discharged home. Medical Decision Differential diagnosis: Etiologies such as appendicitis, diverticulitis, PUD, biliary pathology, UTI, pancreatitis, obstruction, mesenteric ischemia, aortic pathology, infections, inflammatory bowel disease, renal colic, as well as others were entertained. Nursing notes reviewed. The patient is a 22-year-old female who presented to the emergency department for lower abdominal pain. She stated that her pain was intermittent. She had no pain on evaluation today in her abdomen exam was not consistent with an acute surgical abdomen. She was found have a positive test however her beta hCG quantitative was below the threshold that an ultrasound would be a helpful. I discussed the patient's laboratory results with her. Her urinalysis appeared to be more consistent with a contaminated specimen. I do not feel this revealed urinary tract infection. She was encouraged to follow-up with her primary OB/ [facility]PRENT[facility]AL[facility] physician in 48 hours for ultrasound as well as a repeat beta quantitative. She was also given ectopic discharge instructions and encouraged to return the emergency apartment immediately if she developed vaginal bleeding severe pain syncope dizziness or if any other worrisome symptoms develop. Medication Reconcilliation Current Medication List: was personally reviewed by me Blood Pressure Screening Patient's blood pressure: Normal blood pressure Blood pressure disposition: Did not require urgent referral Impression Primary Impression: Abdominal pain Additional Impression: Scribe Attestation The scribe's documentation has been prepared under my direction and personally reviewed by me in its entirety. I confirm that the note above accurately reflects all work, treatment, procedures, and medical decision making performed by me. Departure Information Dispostion Home / Self-Care Prescriptions No Active Prescriptions or Reported Meds Forms HOME CARE DOCUMENTATION FORM, IMPORTANT VISIT INFORMATION Patient Instructions ED Abdominal Pain Rule Out Ectopic, My [facility] Additional Instructions Follow-up with your [facility] physician in 48 hours for a recheck. You will require repeat ultrasound as well as a repeat beta quantitative hCG to further evaluate causing her pain. Rest and avoid any strenuous ectopy. Return to the emergency department immediately if symptoms change worsen or need arises. Problem Qualifiers Primary Impression: Abdominal pain Abdominal location: lower abdomen, unspecified Qualified Codes: R10.30 - Lower abdominal pain, unspecified Additional Impression: Weeks of gestation: less than 8 weeks Qualified Codes: Z3A.01 - Less than 8 weeks gestation of
[2017-07-27 18:56] LABS: BASO % 0.4 %; BASO ABS # 0.04 K/uL (0-0.2); COMPLETE YES; EOS % 2.2 %; HEMATOCRIT 39.9 % (37-47); IG% 0.3 %; LYMPH % 19.1 %; LYMPH ABS # 1.75 K/uL (1.2-3.4); MEAN CELL VOLUME 82.3 fL (80-100); MEAN CORPUSCULAR HEMOGLOBIN 28.9 pg (25-34); MEAN CORPUSCULAR HGB CONC 35.1 g/dl (32-36); MEAN PLATELET VOLUME 8.6 fL (7.4-10.4); MONO % 11.6 %; NEUT % 66.4 %; PLATELET COUNT 339 K/uL (130-400); RED BLOOD COUNT 4.85 M/uL (4.2-5.4); WHITE BLOOD COUNT 9.14 K/uL (4.8-10.8)
[2017-07-27 19:14] LABS: ALT/SGPT 24 U/L (12-78); AST/SGOT 13 U/L (15-37); BLOOD UREA NITROGEN 7 mg/dl (7-18); BUN/CREATININE RATIO 9.9 (10-20); CALCIUM 8.2 mg/dl (8.5-10.1); CARBON DIOXIDE 23 mmol/L (21-32); CHLORIDE 109 mmol/L (98-107); GLUCOSE 85 mg/dl (70-99); POTASSIUM 3.6 mmol/L (3.5-5.1); SODIUM 139 mmol/L (136-145)
[2017-07-27 19:16] LABS: PREG INTERNAL NEGATIVE QC NEG CLEAR BACKGROUND; PREG INTERNAL POSITIVE QC POS CONTROL LINE
[2017-07-27 19:17] LABS: ALKALINE PHOSPHATASE 60 U/L (45-117)
[2017-07-27 19:18] LABS: URINE APPEARANCE CLOUDY (CLEAR); URINE BILIRUBIN NEG (NEG); URINE COLOR YELLOW; URINE EPITHELIAL CELL AUTO >30 /lpf (0-5); URINE NITRITE NEG (NEG); URINE PH 5.5 (4.5-7.5); URINE SPECIFIC GRAVITY 1.028 (1.000-1.030); UROBILINOGEN NEG (NEG)
[2017-07-27 19:28] LABS: MANUAL MICROSCOPIC REQUIRED? NO; REVIEW REQ? NO
[2017-07-27 20:45] VITALS: BP 112/77; PULSE 83; O2SAT 99
== END 2017-07-27 20:45 | disposition home or self-care (01) ==
LOC: C.EDB 17:41 → MERGE 17:41 → C.EDB 20:45
DX: O26.891 Other specified pregnancy related conditions, first trimester (principal); R10.30 Lower abdominal pain, unspecified; Z3A.01 Less than 8 weeks gestation of pregnancy; O99.331 Smoking (tobacco) complicating pregnancy, first trimester; F17.200 Nicotine dependence, unspecified, uncomplicated

== ENCOUNTER 2017-08-10 12:12 | Emergency (ER) | payer OTHER ==
[~2017-08-10] VITALS: Ht 157.5 cm; Wt 73.8 kg
[2017-08-10 12:14] VITALS: TEMP 37; Ht 157.5 cm; Wt 73.8 kg
[2017-08-10] MEDS ORDERED: SODIUM CHLORIDE 0.9% 1000ML 1,000 ML IV ONE (12:41)
[2017-08-10] MEDS ORDERED: SODIUM CHLORIDE 0.9% 1000ML 1,000 ML IV STA (12:41)
[2017-08-10 13:06] LABS: BASO % 0.9 %; BASO ABS # 0.06 K/uL (0-0.2); COMPLETE YES; EOS % 2.8 %; HEMATOCRIT 42.1 % (37-47); IG% 0.3 %; LYMPH % 22.1 %; LYMPH ABS # 1.56 K/uL (1.2-3.4); MEAN CELL VOLUME 83.9 fL (80-100); MEAN CORPUSCULAR HEMOGLOBIN 27.7 pg (25-34); MEAN PLATELET VOLUME 8.6 fL (7.4-10.4); MONO % 8.8 %; NEUT % 65.1 %; PLATELET COUNT 366 K/uL (130-400); RED BLOOD COUNT 5.02 M/uL (4.2-5.4); WHITE BLOOD COUNT 7.05 K/uL (4.8-10.8)
[2017-08-10 13:13] LABS: URINE APPEARANCE CLOUDY (CLEAR); URINE BILIRUBIN NEG (NEG); URINE COLOR DK YELLOW; URINE EPITHELIAL CELL AUTO >30 /lpf (0-5); URINE NITRITE NEG (NEG); URINE PH 6.5 (4.5-7.5); URINE SPECIFIC GRAVITY 1.026 (1.000-1.030); UROBILINOGEN NEG (NEG)
[2017-08-10 13:24] LABS: BUN/CREATININE RATIO 7.5 (10-20); CALCIUM 8.8 mg/dl (8.5-10.1); CREATININE 0.72 mg/dl (0.60-1.20)
[2017-08-10 13:29] LABS: MANUAL MICROSCOPIC REQUIRED? NO; REVIEW REQ? YES
--- NOTE | 2017-08-10 13:29 | EMERGENCY ROOM VISIT NOTE ---
History Report prepared by Martha: Jessica Asher Under the Supervision of: Dr. Ridge Mendes M.D. First contact with patient: 12:34 Chief Complaint: ED VAG BLEEDING Stated Complaint: POSSIBLE MISCARRIAGE 5 1/2 WKS. PREG. History of Present Illness The patient is a 22 year old female who presents to the Emergency Room with complaints of constant vaginal bleeding beginning yesterday. The patient has had a positive test and estimates that she is about 7 weeks . Her LNMP was 2 months ago. The patient is . She has not followed-up with her telephonic case manager yet. Yesterday she developed some vaginal bleeding and lower abdominal cramping. She rates her pain as a 4/10 in severity. She is passing small clots and states that she is using 2-3 pads per day. The patient denies lightheadedness, dizziness, urinary symptoms, trauma, and any personal history of miscarriage or ectopic pregnancies. Her blood type is B+. Recently she was having abdominal pain and called her telephonic case manager. They could not see her so she was advised to come to the ED for further evaluation. She had a bedside FAST US at that time. Source of History: patient Onset: yesterday Position: other (vagina) Symptom Intensity: 4/10 Quality: cramping, other (bleeding) Timing: constant Associated Symptoms: + abdominal pain, + urinary symptoms Note: Pt is about 7 weeks . Pt denies lightheadedness, dizziness, and trauma. Review of Systems See HPI for pertinent positives & negatives. A total of 10 systems reviewed and were otherwise negative. Past Medical & Surgical Medical Problems: (1) Cluster B personality disorder (2) Depression (3) No Known Active Medical Problems (4) No significant past medical history Surgical Problems: (1) No history of previous surgery Social History Problems: (1) Unprotected sex Old medical records were reviewed. Nurse's notes were reviewed and I agree with. This is her second . She has a child at home. She denies any history of miscarriage or ectopic. Family History Patient reports no known family medical history. Social History Smoking Status: Never Smoker Alcohol Use: occasionally Drug Use: none Marital Status: in relationship Housing Status: lives with friends Occupation Status: unemployed Current/Historical Medications No Active Prescriptions or Reported Meds Allergies Coded Allergies: No Known Allergies (Unverified , 08/10/17) Physical Exam Vital Signs Date Time Temp Pulse Resp B/P (MAP) Pulse Ox O2 Delivery O2 Flow Rate FiO2 08/10/17 15:08 75 16 106/76 99 Room Air 08/10/17 14:30 67 16 110/67 100 Room Air 08/10/17 12:14 37.0 95 18 124/83 99 Room Air Physical Exam General: Well developed well nourished non-ill appearing young female in no acute distress, breathing comfortably on room air. Normal speech HEENT: Normal cephalic atraumatic. Pupils are equal round and reactive to light. Extraocular movements are intact. Oropharynx is pink with moist mucous membranes. No swelling of the mouth lips or tongue. Neck: Supple with a midline trachea. No meningeal signs or stiffness, no JVD or bruits. No Stridor. Chest: Clear to auscultation bilaterally. No wheezes or rhonchi. No increased work of breathing. Heart: regular rate and rhythm. Abdomen: Soft nontender, nondistended without rebound guarding or rigidity. Pelvic: Performed in the presence of a female nurse second crusher. Normal external genitalia. On speculum exam, small amount of bleeding, no tissue seen, no cervical motion tenderness. Extremities: No cyanosis clubbing or edema. No calf tenderness or assymetry Spine/Back. Non tender to palpation. No CVA tenderness Skin: Good turgor without rashes. Neurologic exam: Cranial nerves two through 12 are intact. Motor and sensation are intact and symmetrical throughout. Medical Decision & Procedures ER Provider Diagnostic Interpretation: Radiology results as stated below per my review and radiologist interpretation: LIMITED (US) (transabdominal and endovaginal scanning) CLINICAL HISTORY: Lower abdominal pain and bleeding. Positive test. COMPARISON STUDY: No previous studies for comparison. FINDINGS: The uterus measures 8.6 x 4.4 x 5.6 cm. The endometrial stripe measured 14 mm. There is a tiny cystic focus within the endometrium, likely representing an early intrauterine gestational sac.] And intradecidual sign and double sac sign was not visualized with certainty. There are the last this likely represents an early intrauterine gestation. Correlation with quantitative beta hCGs and follow-up ultrasound is recommended. The ovaries were both visualized and appear architecturally unremarkable. There is no significant free fluid. IMPRESSION: Tiny cystic focus within the endometrium, likely representing early intrauterine gestational sac. Correlation with serial quantitative beta hCGs and follow-up ultrasonography is recommended to confirm a viable . Electronically signed by: Srinivasan Arriaga M.D. 08/10/2017 2:22 PM Dictated Date/Time: 08/10/2017 2:14 PM Laboratory Results 08/10/17 12:53 Red Blood Count 5.02, Mean Corpuscular Volume 83.9, Mean Corpuscular Hemoglobin 27.7, Mean Corpuscular Hemoglobin Concent 33.0, Mean Platelet Volume 8.6, Neutrophils (%) (Auto) 65.1, Lymphocytes (%) (Auto) 22.1, Monocytes (%) (Auto) 8.8, Eosinophils (%) (Auto) 2.8, Basophils (%) (Auto) 0.9, Neutrophils # (Auto) 4.59, Lymphocytes # (Auto) 1.56, Monocytes # (Auto) 0.62, Eosinophils # (Auto) 0.20, Basophils # (Auto) 0.06 08/10/17 12:53 Test 08/10/17 12:53 08/10/17 12:54 08/10/17 14:51 White Blood Count 7.05 K/uL (4.8-10.8) Red Blood Count 5.02 M/uL (4.2-5.4) Hemoglobin 13.9 g/dL (12.0-16.0) Hematocrit 42.1 % (37-47) Mean Corpuscular Volume 83.9 fL (80-100) Mean Corpuscular Hemoglobin 27.7 pg (25-34) Mean Corpuscular Hemoglobin Concent 33.0 g/dl (32-36) Platelet Count 366 K/uL (130-400) Mean Platelet Volume 8.6 fL (7.4-10.4) Neutrophils (%) (Auto) 65.1 % Lymphocytes (%) (Auto) 22.1 % Monocytes (%) (Auto) 8.8 % Eosinophils (%) (Auto) 2.8 % Basophils (%) (Auto) 0.9 % Neutrophils # (Auto) 4.59 K/uL (1.4-6.5) Lymphocytes # (Auto) 1.56 K/uL (1.2-3.4) Monocytes # (Auto) 0.62 K/uL (0.11-0.59) Eosinophils # (Auto) 0.20 K/uL (0-0.5) Basophils # (Auto) 0.06 K/uL (0-0.2) RDW Standard Deviation 38.3 fL (36.4-46.3) RDW Coefficient of Variation 12.7 % (11.5-14.5) Immature Granulocyte % (Auto) 0.3 % Immature Granulocyte # (Auto) 0.02 K/uL (0.00-0.02) Anion Gap 8.0 mmol/L (3-11) Est Creatinine Clear Calc Drug Dose 116.3 ml/min Estimated GFR () 138.7 Estimated GFR (Non- 119.7 BUN/Creatinine Ratio 7.5 (10-20) Calcium Level 8.8 mg/dl (8.5-10.1) Human Chorionic Gonadotropin, Quant 237 mIU/mL Urine Color DK YELLOW Urine Appearance CLOUDY (CLEAR) Urine pH 6.5 (4.5-7.5) Urine Specific [place] 1.026 (1.000-1.030) Urine Protein 1+ (NEG) Urine Glucose (UA) NEG (NEG) Urine Ketones TRACE (NEG) Urine Occult Blood 3+ (NEG) Urine Nitrite NEG (NEG) Urine Bilirubin NEG (NEG) Urine Urobilinogen NEG (NEG) Urine Leukocyte Esterase SMALL (NEG) Urine WBC (Auto) 10-30 /hpf (0-5) Urine RBC (Auto) 10-30 /hpf (0-4) Urine Hyaline Casts (Auto) 5-10 /lpf (0-5) Urine Epithelial Cells (Auto) >30 /lpf (0-5) Urine Bacteria (Auto) 1+ (NEG) Urine Mucus PRESENT (NONE PRSENT) Urine Yeast (Auto) (NONE PRSENT) Date/Time Source Procedure Growth Status 08/10/17 14:51 Cervix Swab Trichomonas Preparation - Final Complete Medications Administered Medications (Trade) Dose Ordered Sig/Jose Route Start Time Stop Time Status Last Admin Dose Admin Sodium Chloride 1,000 ml @ 999 mls/hr Q1H1M STAT IV 08/10/17 12:41 08/10/17 13:41 DC 08/10/17 12:56 999 MLS/HR Sodium Chloride 1,000 ml @ 200 mls/hr Q5H ONCE IV 08/10/17 12:41 08/10/17 15:24 DC 08/10/17 14:33 200 MLS/HR ED Course 1234: Past medical records reviewed. The patient was evaluated in room C4, and a complete history and physical examination were performed. 1241: NSS 1000 ml @ 200 mls/hr IV, NSS 1000 ml @ 999 mls/hr IV 1342: I went to check on the patient but she was at US. 1439: At this time I performed a pelvic examination in the presence of a female nurse second crusher. Please see above for my findings. 1448: I spoke with Dr. Wallis of [facility]. We discussed the patient's results and treatment plan. He will follow-up with the patient in the office sometime this week. 1452: I reassessed the patient at this time. She is feeling better and resting comfortably. I discussed the results and treatment plan with the patient. I answered all pertaining questions that she had. She expressed understanding and verbalized agreement. The patient will be discharged home. Medical Decision Differential diagnoses includes , ectopic , miscarriage, vaginal bleeding, anemia, electrolyte or metabolic abnormality. This patient comes in as described above. She is having vaginal bleeding. She is . IV access was established she's been hemodynamically stable. Her beta hCG has dropped from 729 to 237. This indicates a nonviable . Ultrasound shows a possible small gestational sac but no other acute findings. Her blood type is B+, therefore she's not need RhoGAM. She is not severely anemic she has no electrode or metabolic abnormalities she's nothing to suggest infection or UTI. On exam ,she does have a small amount of bleeding but no tissue seen. I did discuss case with Dr. Osorio and he recommends that she follow up with him in the office the next day or so. I told her to rest and drink plenty of fluids and use ibuprofen for pain. Return if: increasing pain or bleeding, worsening symptoms, any new problems or concerns at this point she appears to be having a miscarriage but does need close follow-up. It is hard to 100% rule out ectopic. I think that is unlikely but I gave her ectopic precautions to return if she has increasing pain or bleeding. The patient and her boyfriend happy with plan and she was discharged to home. Medication Reconcilliation Current Medication List: was personally reviewed by me Blood Pressure Screening Patient's blood pressure: Normal blood pressure Consults Time Called: [phone] Consulting Physician: Dr. Wallis Returned Call: [phone] Wallis of [facility]. We discussed the patient's results and treatment plan. He will follow-up with the patient in the office sometime this week. Impression Primary Impression: Vaginal bleeding Additional Impression: Miscarriage Scribe Attestation The scribe's documentation has been prepared under my direction and personally reviewed by me in its entirety. I confirm that the note above accurately reflects all work, treatment, procedures, and medical decision making performed by me. Departure Information Dispostion Home / Self-Care Prescriptions No Active Prescriptions or Reported Meds Referrals No Doctor, Assigned (PCP) Forms HOME CARE DOCUMENTATION FORM, IMPORTANT VISIT INFORMATION, WORK / SCHOOL INSTRUCTIONS Patient Instructions My [facility] [employer] Additional Instructions Rest. Drink plenty of fluids. Use ibuprofen 400 mg every 6 hours Call and get rechecked by your gynecology group in 1-2 days Return to ER if increasing pain or bleeding, worsening of symptoms, fever or chills, any new problems or concerns. Problem Qualifiers
[2017-08-10 14:06] LABS: URINE MUCUS PRESENT (NONE PRSENT)
--- NOTE | 2017-08-10 14:23 | DIAGNOSTIC IMAGING REPORT ---
LIMITED (US) (transabdominal and endovaginal scanning) CLINICAL HISTORY: Lower abdominal pain and bleeding. Positive test. COMPARISON STUDY: No previous studies for comparison. FINDINGS: The uterus measures 8.6 x 4.4 x 5.6 cm. The endometrial stripe measured 14 mm. There is a tiny cystic focus within the endometrium, likely representing an early intrauterine gestational sac.] And intradecidual sign and double sac sign was not visualized with certainty. There are the last this likely represents an early intrauterine gestation. Correlation with quantitative beta hCGs and follow-up ultrasound is recommended. The ovaries were both visualized and appear architecturally unremarkable. There is no significant free fluid. IMPRESSION: Tiny cystic focus within the endometrium, likely representing early intrauterine gestational sac. Correlation with serial quantitative beta hCGs and follow-up ultrasonography is recommended to confirm a viable . Electronically signed by: Srinivasan Arriaga M.D. 08/10/2017 2:22 PM Dictated Date/Time: 08/10/2017 2:14 PM
[2017-08-10 15:08] VITALS: BP 106/76; PULSE 75; O2SAT 99
[2017-08-13 00:55] LABS: CHLAMYDIA TRACH RNA*** DETECTED (NOT DETECTED); GC (NEIS GONORRHOEAE)RNA** NOT DETECTED (NOT DETECTED)
--- NOTE | 2017-08-13 14:30 | Pharmacy Progress Note ---
ED Pharmacist Culture FollowUp Date of Service: Aug 13, 2017. Per Dr. Mendes's note, he discussed treatment plan and follow up with patients OB-UTILITY ASSEMBLER, Dr. Wallis, during ER visit. Given the patients history and the nature of the results, deferred to Dr. Wallis. I spoke with Comfort at Dr. Wallis's office and was instructed to fax the results to [phone] and she confirmed they would assume responsibility for any further treatment needed. Fax was successfully sent.
== END 2017-08-10 15:12 | disposition home or self-care (01) ==
LOC: C.EDB 12:14 → C.EDC 15:12
DX: O03.9 Complete or unspecified spontaneous abortion without complication (principal); Z3A.01 Less than 8 weeks gestation of pregnancy; F60.9 Personality disorder, unspecified; F32.9 Major depressive disorder, single episode, unspecified

== ENCOUNTER 2017-08-13 15:17 | Emergency (ER) | payer OTHER ==
[~2017-08-13] VITALS: Ht 157.5 cm; Wt 75.0 kg
[2017-08-13 15:35] VITALS: TEMP 36.5; Ht 157.5 cm; Wt 75.0 kg
--- NOTE | 2017-08-13 17:16 | EMERGENCY ROOM VISIT NOTE ---
History Report prepared by Martha: Chalo Mejia Under the Supervision of: Dr. Comfort Domingo D.O. First contact with patient: 15:28 Chief Complaint: MENTAL HEALTH EVALUATION Stated Complaint: MHID History of Present Illness The patient is a 22 year old female who presents to the Emergency Room as a 302 by police after making a suicidal statement to a family member. Patient with a history of depression and anxiety and is currently following with a therapist. Upon my interview patient states that she takes today family member who she was having a disagreement with a suicidal statement as a way to "press her buttons" because she states this has worked in the past and she wanted to upset her because she herself was upset. She states that this family member then retaliated by calling the police. Patient states she has been wrongly accused of taking her grandfathers debit card. Patient states she is not on any current medications for depression and anxiety. Denies any current thoughts of suicide or prior attempts. Patient states she was once [facility] as a [facility] Patient denies any current homicidal ideation, paranoia, hallucinations. Patient states she is looking forward to seeing her son today who she does not have primary custody of. Pt feels recent miscarriage has contributed to her depression/anxiety. States no pain/fevers, vaginal bleeding continues to decrease, and she has followed up with dough molder. Review of Systems See HPI for pertinent positives & negatives. A total of 10 systems reviewed and were otherwise negative. Past Medical & Surgical Medical Problems: (1) Cluster B personality disorder (2) Depression (3) No Known Active Medical Problems (4) No significant past medical history Surgical Problems: (1) No history of previous surgery Social History Problems: (1) Unprotected sex Family History Patient reports no known family medical history. Social History Smoking Status: Never Smoker Alcohol Use: occasionally Drug Use: none Marital Status: in relationship Housing Status: lives with friends Occupation Status: unemployed Current/Historical Medications No Active Prescriptions or Reported Meds Allergies Coded Allergies: No Known Allergies (Unverified , 08/13/17) Physical Exam Vital Signs Date Time Temp Pulse Resp B/P (MAP) Pulse Ox O2 Delivery O2 Flow Rate FiO2 08/13/17 17:30 87 20 145/72 99 Room Air 08/13/17 15:35 36.5 110 20 150/99 99 Room Air Physical Exam GENERAL: alert, well appearing, well nourished, no distress, non-toxic EYE EXAM: normal conjunctiva, PERRL and EOM's grossly intact OROPHARYNX: no exudate, no erythema, lips, buccal mucosa, and tongue normal and mucous membranes are moist NECK: supple, no nuchal rigidity, no adenopathy, non-tender LUNGS: Clear to auscultation. Normal chest wall mechanics HEART: no murmurs, S1 normal and S2 normal ABDOMEN: abdomen soft, non-tender, normo-active bowel sounds, no masses, no rebound or guarding. BACK: Back is symmetrical on inspection and there is no deformity, no midline tenderness, no CVA tenderness. SKIN: no rashes and no bruising no evidence of cutting. UPPER EXTREMITIES: upper extremities are grossly normal. Normal range of motion , no obvious trauma. LOWER EXTREMITIES: No pitting edema. Normal range of motion, no obvious trauma. NEURO EXAM: Normal sensorium, cranial nerves II-XII grossly intact, normal speech, no gross weakness of arms, no gross weakness of legs. PSYCH: Depression. Anxiety. No suicidal ideation. No homicidal ideation. No hallucinations. Good eye contact, good facial expressions, appropriate speech and insight. Medical Decision & Procedures ED Course 1558: The patient was evaluated in room A6. A complete history and physical exam was performed. 1715: Upon reevaluation, the patient is feeling better. I discussed the findings and the treatment plan with the patient. She verbalizes agreement and understanding. She was discharged home. Medical Decision Differential diagnosis: Etiologies such as mood disorder, infection, hypoglycemia, electrolyte abnormalities, cardiac sources, intracerebral event, toxicologic, neurologic, as well as others were entertained. Psych heel caser able to discuss with family and pt's therapist. Pt felt stable for discharge. I do not feel pt is an imminent threat to herself or others. Pt cooperative here. Regrets earlier statements and feel safe contacting her therapist. Discussed reasons to return or call 911. Impression Primary Impression: Depression Additional Impression: Acute anxiety Scribe Attestation The scribe's documentation has been prepared under my direction and personally reviewed by me in its entirety. I confirm that the note above accurately reflects all work, treatment, procedures, and medical decision making performed by me. Departure Information Dispostion Home / Self-Care Prescriptions No Active Prescriptions or Reported Meds Referrals No Doctor, Assigned (PCP) Patient Instructions My [facility] Additional Instructions Please follow up with your therapist. Please use alternative forms of coping. If you feel you're becoming more depressed, have worsening anxiety, have any thoughts of wanting to hurt herself or someone else, or have any other new and concerning symptoms, please return the emergency room. Problem Qualifiers Primary Impression: Depression Depression Type: unspecified Qualified Codes: F32.9 - Major depressive disorder, single episode, unspecified
[2017-08-13 17:30] VITALS: BP 145/72; PULSE 87; O2SAT 99
== END 2017-08-13 17:34 | disposition home or self-care (01) ==
LOC: EDBD 15:17 → C.EDA 15:23
DX: F32.9 Major depressive disorder, single episode, unspecified (principal); F41.9 Anxiety disorder, unspecified

== ENCOUNTER 2017-11-14 18:37 | Emergency (ER) | payer OTHER ==
[~2017-11-14] VITALS: Ht 157.5 cm; Wt 75.0 kg
[2017-11-14 18:42] VITALS: BP 117/80; PULSE 88; TEMP 36.7; O2SAT 97; Ht 157.5 cm; Wt 75.0 kg
--- NOTE | 2017-11-14 19:39 | EMERGENCY ROOM VISIT NOTE ---
ED Visit Note First contact with patient: 18:51 CHIEF COMPLAINT: Bilateral hand and wrist pain HISTORY OF PRESENT ILLNESS: This 22-year-old female patient presents to the emergency department by private vehicle complaining of pain in both hands and wrists for the past week. She states that she does a lot of repetitive work at her job, and this seems to aggravate the pain. She reports that it starts in her wrist and radiates down into her hand and fingers, feels like a cramp, and states she is unable to use her hands because of the pain, aggravated by repetitive movements, improved with rest, currently rates as 0/10. She denies any previous injuries to the hands or wrists. She is right-hand dominant. She denies any numbness, tingling, or weakness of the hands. She has tried ibuprofen and Tylenol, but continues to have these intermittent spasms of pain in her wrists and hands. She denies any headaches, neck pain, chest pain, shortness breath, abdominal pain, nausea or vomiting, urinary symptoms, or rash. She does report a strong family history for carpal tunnel and arthritis a young age, she is concerned about this possibility. She does also note that she needs a work excuse because she called off work today. REVIEW OF SYSTEMS: A 10 system review of systems was performed with positives and pertinent negatives in the HPI. ALLERGIES: No known allergies MEDICATIONS: Patient denies any medications PMH: No significant past medical or surgical history. SOCIAL HISTORY: Lives at home. She denies any tobacco use, alcohol use, recreational drug use. PHYSICAL EXAM: Vital Signs: Reviewed Nurse's notes, vital signs stable. GENERAL : Pleasant and cooperative, in no acute distress, well-developed, well- nourished. Texting on phone with both hands. NEURO: Alert and oriented to person place and time. Normal sensation to light and sharp touch in bilateral upper and lower extremities. Normal speech, normal gait observed. MUSCULOSKELETAL: There is no deformity of the bilateral wrists. There is no tenderness or edema of the hands or wrists. There is no snuff box tenderness. Range of motion is normal. There is no tenderness of the elbow, hand or fingers. Link Machine Operator strength 5/5. Normal intact thumbs up, normal "OK" sign. Normal strength with flexion and extension of both wrists against resistance. Radial pulse 2+. SKIN: Normal and intact. The hand is warm and well perfused with capillary refill less than 2 seconds. EMERGENCY DEPARTMENT COURSE: I examined the patient. Differential diagnosis includes muscle spasm/cramp, sprain/strain, carpal tunnel syndrome, cervical radiculopathy, among others. Patient has normal strength of bilateral upper extremities, normal sensation bilaterally, 2+ radial pulses and brisk cap refill of the bilateral hands. Neuro exam is normal. There is no cervical spine tenderness to palpation, normal ROM with no pain. She does have reproducible pain with Tinel test and Phalen test, though no numbness/tingling; this may indicate mild carpal tunnel syndrome, although this seems unusual to present simultaneously in both wrists. I suspect this is more likely muscle spasms due to repetitive motions. I discussed with the patient, she would like to have splints for her wrists, and is asking that her note for work also be for tomorrow. Bilateral wrist splints were placed under my direction and the position was satisfactory. Neurovascular status rechecked and intact. The patient was instructed to follow up with her PCP or orthopedic surgeon if symptoms do not improve, she verbalized understanding The patient was discharged home in good condition. Current/Historical Medications No Active Prescriptions or Reported Meds Allergies Coded Allergies: No Known Allergies (Unverified , 08/13/17) Vital Signs Date Time Temp Pulse Resp B/P (MAP) Pulse Ox O2 Delivery O2 Flow Rate FiO2 11/14/17 18:42 36.7 88 16 117/80 97 Room Air Departure Information Impression Primary Impression: Bilateral wrist pain Dispostion Home / Self-Care Condition GOOD Prescriptions No Active Prescriptions or Reported Meds Referrals No Doctor, Assigned (PCP) Juan Luis Whitney MD Patient Instructions ED Carpal Tunnel, ED Spasm Muscle, My [facility] Additional Instructions Wear the wrist splints for 4 - 5 days for comfort, until the pain subsides. Alternate ice and heat to the wrists for comfort. Ibuprofen 600mg and Tylenol 1000 mg every 8 hours if needed for the pain. Follow up with your family doctor or orthopedic surgeon if symptoms persist in 5 -7 days. Return to emergency by mom for severe worsening pain, swelling, numbness or weakness in her hands or arms, or any other concerns. Work Instructions Return To Work: 2 days
[2018-03-05] MEDS ORDERED: HYDR1INJ12 INJ (11:23)
== END 2017-11-14 19:46 | disposition home or self-care (01) ==
LOC: C.EDB 18:38 → C.EDD 19:46
DX: M25.531 Pain in right wrist (principal); M25.532 Pain in left wrist

== ENCOUNTER 2017-11-27 20:59 | Emergency (ER) | payer OTHER ==
[~2017-11-27] VITALS: Ht 157.5 cm; Wt 75.1 kg
[2017-11-27 21:13] VITALS: TEMP 36.7; Ht 157.5 cm; Wt 75.1 kg
[2017-11-27] MEDS ORDERED: FLEXERIL HOME PACK 10 MG VIAL PO ONE (21:45)
[2017-11-27] MEDS ORDERED: CYCL10TA6 PO (21:50)
--- NOTE | 2017-11-27 21:50 | EMERGENCY ROOM VISIT NOTE ---
ED Visit Note First contact with patient: 21:15 CHIEF COMPLAINT: Mid back pain 2 days HISTORY OF PRESENT ILLNESS: Patient is a [id number] 22-year-old white female who presents to the emergency department for evaluation of mid back pain 2 days. She states she woke up with symptoms yesterday morning. She describes pain in the midline of her back between her shoulder blades. Yesterday it hurt to try to put her right arm over her head, she can do that now but it is painful. It also hurts when she turns her head. She took Tylenol PM yesterday, but has otherwise not done anything else for her symptoms. She cannot recall any injury. 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 She denies any chest pain or shortness of breath. Pain is not worse with coughing or deep breathing. No numbness, weakness, or tingling of extremities. She denies any neck or low back pain. REVIEW OF SYSTEMS: Review of systems as per HPI. All other systems reviewed were negative. At least 6 systems reviewed. PMH: Electronic medical records are reviewed and summarized as above/below. See Problem List. SOCIAL HISTORY: Patient lives at home. Nonsmoker. PHYSICAL EXAM: Vital Signs: Reviewed Nurse's notes. MENTAL STATUS: Well- appearing 22-year-old white female who is awake and alert and in no acute distress. SPINE: Examination of the patient's back does not note any ecchymosis , no erythema or signs of trauma. There is no midline tenderness over the spinous processes of the cervical or thoracic spine. She has reproducible tenderness in the midthoracic region, between the shoulder blades, primarily on the right, with palpable spasm in the rhomboid distribution. Cervical and lumbar spine range of motion is full. Upper extremity DTRs are equal and symmetrical bilaterally. Radial and ulnar pulses are easily palpable. HEART: Regular rate and rhythm. LUNGS: Clear to auscultation. EMERGENCY DEPARTMENT COURSE: The patient was seen and evaluated as above. Her old records are reviewed. She presents the emergency department for evaluation of 2 days of mid back pain. She has reproducible muscle tenderness with spasm on exam. She does not have any neurologic deficits. No history of trauma to indicate radiographs at this time. The patient was encouraged to use heat, take an anti-inflammatory medicine such as Aleve or ibuprofen, and was given a small prescription for Flexeril to use as needed for spasms she reports that she had follow-up of work for 2 shifts because of her pain. Medication reconciliation: I attest that I have personally reviewed the patient' s current medication list. Blood pressure screening: Patient was found to have a slightly elevated blood pressure due to circumstances. I do not believe that the patient requires hypertension monitoring. Problem List Medical Problems: (1) Abdominal pain Status: Resolved (2) Acute anxiety Status: Resolved (3) Allergic rhinitis Status: Resolved (4) Bilateral wrist pain Status: Resolved (5) Cluster B personality disorder Status: Chronic (6) Depression Status: Chronic (7) Encounter for removal of sutures Status: Resolved (8) Encounter for wound re-check Status: Resolved (9) Encounter for wound re-check Status: Resolved (10) Infected finger laceration Status: Resolved (11) Laceration of forearm, left Status: Resolved (12) Left upper arm pain Status: Resolved (13) Lower abdominal pain Status: Resolved (14) Miscarriage Status: Resolved (15) No significant past medical history Status: Resolved (16) Pain, dental Status: Resolved (17) Pharyngitis Status: Resolved (18) Status: Resolved (19) Right leg pain Status: Resolved (20) Self-inflicted injury Status: Resolved (21) UTI (urinary tract infection) Status: Resolved (22) Vaginal bleeding Status: Resolved (23) Wound dehiscence Status: Resolved (24) Wound dehiscence Status: Resolved Current/Historical Medications Scheduled PRN Cyclobenzaprine Hcl (Flexeril), 10 MG PO TID PRN for Muscle Spasms Allergies Coded Allergies: No Known Allergies (Unverified , 08/13/17) Vital Signs Date Time Temp Pulse Resp B/P (MAP) Pulse Ox O2 Delivery O2 Flow Rate FiO2 11/27/17 22:08 89 18 146/85 98 11/27/17 21:13 36.7 76 18 98 Room Air Medications Administered Medications (Trade) Dose Ordered Sig/Ojse Route Start Time Stop Time Status Last Admin Dose Admin Cyclobenzaprine HCl (FLEXERIL 10MG Home Pack) 1 homepack UD ONCE PO 11/27/17 21:45 11/27/17 21:46 DC 11/27/17 21:45 1 HOMEPACK Departure Information Impression Primary Impression: Thoracic back pain Prescriptions Cyclobenzaprine Hcl (FLEXERIL) 10 Mg Tab 10 MG PO TID Y for Muscle Spasms, #20 TAB Prov: Shyanne Diaz PA 11/27/17 Referrals No Doctor, Assigned (PCP) Patient Instructions My [facility] Additional Instructions Cyclobenzaprine (Flexeril) 10 mg: Take 1 pills 3 times daily as needed for muscle spasms.. Avoid alcohol, operating machinery or dangerous equipment, working on ladders or roofs, DRIVING, or situations where being under the influence may be dangerous. Ibuprofen(Motrin, Advil) may be used for fever or pain. Use 600mg every six hours as needed. Take with food. Avoid using more than 2400mg in a 24 hour period. Do not use 2400mg per day for more than three consecutive days without physician direction. Prolonged inappropriate use can lead to stomach upset or ulcers. This medication can be taken if you need to drive, work, or perform activities which may be dangerous when taking narcotic pain medication. (AND/OR) Acetaminophen(Tylenol) may be used for fever or pain. Use 1000mg every six hours as needed. Avoid using more than 3000mg in a 24 hour period. This medication can be taken if you need to drive, work, or perform activities which may be dangerous when taking narcotic pain medication. Rest and avoid heavy lifting until your symptoms resolve and then gradually return to full activity. A good rule of thumb is if it hurts your back to perform a certain activity, then it should be avoided until you are healthy again. A heating pad, warm compresses, or a hot shower may help with tight muscles and can be done several times a day as needed. Gentle stretching exercises and range of motion exercises to help reduce stiffness and spasm. Continue current medications. Return to the ER immediately for any numbness, tingling, severe pain, loss of control of your bowels or bladder, inability to walk, or as needed. Follow up with your primary care physician within 3-5 days for a recheck of your current condition. Problem Qualifiers Primary Impression: Thoracic back pain Chronicity: acute Back pain laterality: midline Qualified Codes: M54.6 - Pain in thoracic spine
[2017-11-27 22:08] VITALS: BP 146/85; PULSE 89; O2SAT 98
== END 2017-11-27 22:09 | disposition home or self-care (01) ==
LOC: C.EDB 21:01 → C.EDD 22:09
DX: M54.6 Pain in thoracic spine (principal)

== ENCOUNTER 2017-12-11 17:17 | Emergency (ER) | payer OTHER ==
[~2017-12-11] VITALS: Ht 157.5 cm; Wt 75.1 kg
[2017-12-11 17:42] VITALS: BP 121/79; PULSE 89; TEMP 36.9; O2SAT 98; Ht 157.5 cm; Wt 75.1 kg
--- NOTE | 2017-12-11 18:20 | EMERGENCY ROOM VISIT NOTE ---
History Report prepared by Martha: Jimmy Germain Under the Supervision of: Dr. John Jorgensen M.D. First contact with patient: 17:58 Chief Complaint: NAUSEA Stated Complaint: NAUSEA AND VOMITING FOR 2 DAYS Nursing Triage Summary: pt reports nausea for two days denies fever& diarreah History of Present Illness The patient is a 22 year old female who presents to the Emergency Room with complaints of constant nausea for the past 2 days. She has associated symptoms of vomiting and intermittent RLQ abdominal pain. She states the RLQ abdominal pain occurs when she lies down and is relieved when she changes positions. She states the symptoms could be related. She states she does not know for sure if she is . She adds that if she was , she would be about 3-4 weeks along. Patient adds that she usually gets her menstrual period at the end of the month. She states she does not feel like her menstrual period is currently coming on. She states she has not taken a home test. Patient states she has been two times before. She states she had a miscarriage in June and currently has a 5 year old child at home. She denies any history of lung or kidney problems. She denies associated symptoms of sore throat, diarrhea, fevers, chills, or cough. Patient denies any unusual vaginal discharge. Source of History: patient Onset: 2 days ago Timing: constant Associated Symptoms: + vomiting, + abdominal pain, No fevers, No chills, No sorethroat, No cough, No diarrhea Note: Patient denies unusual vaginal discharge. Review of Systems See HPI for pertinent positives & negatives. A total of 10 systems reviewed and were otherwise negative. Past Medical & Surgical Medical Problems: (1) Abdominal pain (2) Acute anxiety (3) Allergic rhinitis (4) Bilateral wrist pain (5) Cluster B personality disorder (6) Depression (7) Encounter for removal of sutures (8) Encounter for wound re-check (9) Encounter for wound re-check (10) Infected finger laceration (11) Laceration of forearm, left (12) Left upper arm pain (13) Lower abdominal pain (14) Miscarriage (15) No significant past medical history (16) Pain, dental (17) Pharyngitis (18) (19) Right leg pain (20) Self-inflicted injury (21) UTI (urinary tract infection) (22) Vaginal bleeding (23) Wound dehiscence (24) Wound dehiscence Surgical Problems: (1) No history of previous surgery Social History Problems: (1) Unprotected sex Family History Patient reports no known family medical history. Social History Smoking Status: Former Smoker Alcohol Use: occasionally Drug Use: none Marital Status: in relationship Housing Status: lives with friends Occupation Status: unemployed Current/Historical Medications No Active Prescriptions or Reported Meds Allergies Coded Allergies: No Known Allergies (Unverified , 12/11/17) Physical Exam Vital Signs Date Time Temp Pulse Resp B/P (MAP) Pulse Ox O2 Delivery O2 Flow Rate FiO2 12/11/17 17:42 36.9 89 18 121/79 98 Room Air Physical Exam GENERAL: Patient is in no acute distress. HEENT: No acute trauma, normocephalic atraumatic, mucous membranes moist, no nasal congestion, no scleral icterus. NECK: No stridor, no adenopathy, no meningismus, trachea is midline. LUNGS: Clear to auscultation bilaterally, no wheeze, no rhonchi, breath sounds equal. HEART: Without murmurs gallops or rubs, regular rate and rhythm. ABDOMEN: Soft, nontender, bowel sounds positive, no hernias, no peritonitis. EXTREMITIES: No cyanosis or edema, full range of motion of all the joints without pain or difficulty, no signs for acute trauma. NEUROLOGIC: Oriented x 3, no acute motor or sensory deficits, no focal weakness. SKIN: No rash, no jaundice, no diaphoresis. Medical Decision & Procedures Laboratory Results Test 12/11/17 18:00 Urine Test POS (NEG) Urine dip positive for trace blood only. Laboratory results reviewed by me: ED Course 180: The patient was evaluated in room C7. A complete history and physical exam was performed. 1839: Reevaluated the patient. Discussed results and discharge instructions. She verbalized understanding and agreement. The patient is ready for discharge. Medical Decision Differential Diagnosis: Viral illness, dehydration, UTI, , and food-borne illness The patient presents with nausea over the last few days. She is close to being a little late on her menstrual cycle. She is concerned she may be . She's not had fever, chills, cough or cold, no urinary complaints or unusual vaginal discharge. Urine dip shows trace blood, no signs of infection. test is positive. The patient did not want anything for nausea, she feels she can manage without medication. She is being discharged to follow with OB, if worsening, she can return. I do believe her nausea is from the . Medication Reconcilliation Current Medication List: was personally reviewed by me Blood Pressure Screening Patient's blood pressure: Normal blood pressure Blood pressure disposition: Did not require urgent referral Impression Primary Impression: Nausea Additional Impression: Scribe Attestation The scribe's documentation has been prepared under my direction and personally reviewed by me in its entirety. I confirm that the note above accurately reflects all work, treatment, procedures, and medical decision making performed by me. Departure Information Dispostion Home / Self-Care Prescriptions No Active Prescriptions or Reported Meds Referrals No Doctor, Assigned (PCP) Forms HOME CARE DOCUMENTATION FORM, IMPORTANT VISIT INFORMATION Patient Instructions My [facility] Additional Instructions follow with ob return if worsening test today was positive Problem Qualifiers
== END 2017-12-11 18:36 | disposition home or self-care (01) ==
LOC: C.EDB 17:18 → C.EDC 18:36
DX: O26.91 Pregnancy related conditions, unspecified, first trimester (principal); R11.0 Nausea; Z3A.00 Weeks of gestation of pregnancy not specified; Z87.891 Personal history of nicotine dependence

== ENCOUNTER → 2018-01-03 | Outpatient (CLI) | payer OTHER | END | disposition home or self-care (01) | LOC: C.LABSPEC 15:52 | PROVIDERS: ATTEND Obstetrics & Gynecology | DX: Z34.81 Encounter for supervision of other normal pregnancy, first trimester (principal) ==

== ENCOUNTER → 2018-01-05 | Outpatient (CLI) | payer OTHER | END | disposition home or self-care (01) | LOC: C.PAPS 09:35 | PROVIDERS: ATTEND Obstetrics & Gynecology | DX: Z12.4 Encounter for screening for malignant neoplasm of cervix (principal) ==

== ENCOUNTER → 2018-01-05 | Outpatient (CLI) | payer OTHER ==
[2018-01-05 16:38] LABS: BASO % 0.3 %; BASO ABS # 0.03 K/uL (0-0.2); EOS % 1.8 %; EOS ABS # 0.17 K/uL (0-0.5); HEMATOCRIT 38.1 % (37-47); HEMOGLOBIN 13.4 g/dL (12.0-16.0); IG# 0.01 K/uL (0.00-0.02); LYMPH % 16.8 %; LYMPH ABS # 1.57 K/uL (1.2-3.4); MEAN CELL VOLUME 80.5 fL (80-100); MEAN CORPUSCULAR HEMOGLOBIN 28.3 pg (25-34); MEAN CORPUSCULAR HGB CONC 35.2 g/dl (32-36); MEAN PLATELET VOLUME 8.7 fL (7.4-10.4); MONO % 8.3 %; MONO ABS # 0.78 K/uL (0.11-0.59); NEUT % 72.7 %; PLATELET COUNT 348 K/uL (130-400); RED CELL DISTRIBUTION WIDTH SD 37.6 fL (36.4-46.3); WHITE BLOOD COUNT 9.36 K/uL (4.8-10.8)
== END | disposition home or self-care (01) ==
LOC: C.LAB1850 15:36
PROVIDERS: ATTEND Obstetrics & Gynecology
DX: Z34.81 Encounter for supervision of other normal pregnancy, first trimester (principal); Z3A.00 Weeks of gestation of pregnancy not specified

== ENCOUNTER 2018-02-05 02:56 | Emergency (ER) | payer OTHER ==
[~2018-02-05] VITALS: Ht 160 cm; Wt 73.0 kg
[2018-02-05 03:00] VITALS: TEMP 36.9; Ht 160 cm; Wt 73.0 kg
[2018-02-05 03:48] LABS: BASO % 0.5 %; BASO ABS # 0.04 K/uL (0-0.2); EOS % 2.6 %; EOS ABS # 0.19 K/uL (0-0.5); HEMATOCRIT 36.6 % (37-47); IG# 0.01 K/uL (0.00-0.02); LYMPH % 18.9 %; LYMPH ABS # 1.38 K/uL (1.2-3.4); MEAN CELL VOLUME 81.2 fL (80-100); MEAN CORPUSCULAR HEMOGLOBIN 28.8 pg (25-34); MEAN CORPUSCULAR HGB CONC 35.5 g/dl (32-36); MEAN PLATELET VOLUME 8.5 fL (7.4-10.4); MONO % 8.9 %; MONO ABS # 0.65 K/uL (0.11-0.59); NEUT ABS # 5.03 K/uL (1.4-6.5); PLATELET COUNT 262 K/uL (130-400); RED CELL DISTRIBUTION WIDTH CV 12.9 % (11.5-14.5); RED CELL DISTRIBUTION WIDTH SD 38.1 fL (36.4-46.3)
--- NOTE | 2018-02-05 04:08 | EMERGENCY ROOM VISIT NOTE ---
History First contact with patient: 03:14 Chief Complaint: ED VAG BLEEDING Stated Complaint: BLEEDING DURING --13 WEEKS History of Present Illness The patient is a 22 year old female who presents to the Emergency Room with complaints of vaginal bleeding. The patient reports she is currently approximately 13 weeks . She states that she was at work just prior to arrival and use the bathroom and noticed a small amount of blood from her vagina. She states that the blood was bright red and she noticed it when she wiped. She was concerned due to a history of miscarriage. She denies any abdominal pain. She has had nausea and vomiting throughout the . She had an appointment with her [employer]OR [employer] EDUCATION earlier this week and states that things were going well and the fetus had a normal heart rate. She has had 2 previous pregnancies, with 1 son born prematurely and 1 miscarriage which occurred very early in the first trimester. Review of Systems A complete 10 point review of systems was reviewed with the patient with pertinent positives and negatives as per history of present illness. All else were negative. Past Medical/Surgical History Medical Problems: (1) Abdominal pain (2) Acute anxiety (3) Allergic rhinitis (4) Bilateral wrist pain (5) Cluster B personality disorder (6) Depression (7) Encounter for removal of sutures (8) Encounter for wound re-check (9) Encounter for wound re-check (10) Infected finger laceration (11) Laceration of forearm, left (12) Left upper arm pain (13) Lower abdominal pain (14) Miscarriage (15) No significant past medical history (16) Pain, dental (17) Pharyngitis (18) (19) Right leg pain (20) Self-inflicted injury (21) UTI (urinary tract infection) (22) Vaginal bleeding (23) Wound dehiscence (24) Wound dehiscence Surgical Problems: (1) No history of previous surgery Social History Problems: (1) Unprotected sex Family History Patient reports no known family medical history. Social History Smoking Status: Never Smoker Alcohol Use: occasionally Drug Use: none Marital Status: in relationship Housing Status: lives with friends Occupation Status: unemployed Current/Historical Medications No Active Prescriptions or Reported Meds Physical Exam Vital Signs Date Time Temp Pulse Resp B/P (MAP) Pulse Ox O2 Delivery O2 Flow Rate FiO2 02/05/18 05:52 76 16 111/63 96 02/05/18 05:11 84 16 113/76 97 Room Air 02/05/18 03:00 36.9 94 20 120/82 98 Room Air Physical Exam VITALS: Vitals are noted on the nurse's note and reviewed by myself. Vital signs stable. GENERAL: This is a 22-year-old female, in no acute distress, nondiaphoretic, well-developed well-nourished. SKIN: The skin was without rashes. MOUTH: Mucous membranes moist. HEART: Regular rate and rhythm without murmurs gallops or rubs. LUNGS: Clear to auscultation bilaterally without wheezes, rales or rhonchi. ABDOMEN: Positive bowel sounds x 4. Soft, nontender to palpation. NEURO: Patient was alert and oriented to person place and time. Medical Decision & Procedures ER Provider Diagnostic Interpretation: US OB LIMITED: Single live intrauterine with heart rate of 152 bpm. Estimated gestational age 13 weeks 4 days. Visualized portions of the pancreas unremarkable. No previa. Cervix is closed measuring 4.2 cm. Questionable tiny subchorionic hematoma. Bilateral ovaries are unremarkable. Radiologist: Indra Sheldon DO Laboratory Results 02/05/18 03:40 Red Blood Count 4.51, Mean Corpuscular Volume 81.2, Mean Corpuscular Hemoglobin 28.8, Mean Corpuscular Hemoglobin Concent 35.5, Mean Platelet Volume 8.5, Neutrophils (%) (Auto) 69.0, Lymphocytes (%) (Auto) 18.9, Monocytes (%) (Auto) 8.9, Eosinophils (%) (Auto) 2.6, Basophils (%) (Auto) 0.5, Neutrophils # (Auto) 5.03, Lymphocytes # (Auto) 1.38, Monocytes # (Auto) 0.65, Eosinophils # (Auto) 0.19, Basophils # (Auto) 0.04 02/05/18 03:39 Test 02/05/18 03:39 02/05/18 03:40 Anion Gap 7.0 mmol/L (3-11) Est Creatinine Clear Calc Drug Dose 154.9 ml/min Estimated GFR () > 150.0 Estimated GFR (Non- 134.1 BUN/Creatinine Ratio 9.0 (10-20) Calcium Level 8.4 mg/dl (8.5-10.1) Total Bilirubin 0.2 mg/dl (0.2-1) Aspartate Amino Transf (AST/SGOT) 11 U/L (15-37) Alanine Aminotransferase (ALT/SGPT) 15 U/L (12-78) Alkaline Phosphatase 54 U/L (45-117) Total Protein 6.5 gm/dl (6.4-8.2) Albumin 2.9 gm/dl (3.4-5.0) Globulin 3.6 gm/dl (2.5-4.0) Albumin/Globulin Ratio 0.8 (0.9-2) Human Chorionic Gonadotropin, Quant 62537 mIU/mL White Blood Count 7.30 K/uL (4.8-10.8) Red Blood Count 4.51 M/uL (4.2-5.4) Hemoglobin 13.0 g/dL (12.0-16.0) Hematocrit 36.6 % (37-47) Mean Corpuscular Volume 81.2 fL (80-100) Mean Corpuscular Hemoglobin 28.8 pg (25-34) Mean Corpuscular Hemoglobin Concent 35.5 g/dl (32-36) Platelet Count 262 K/uL (130-400) Mean Platelet Volume 8.5 fL (7.4-10.4) Neutrophils (%) (Auto) 69.0 % Lymphocytes (%) (Auto) 18.9 % Monocytes (%) (Auto) 8.9 % Eosinophils (%) (Auto) 2.6 % Basophils (%) (Auto) 0.5 % Neutrophils # (Auto) 5.03 K/uL (1.4-6.5) Lymphocytes # (Auto) 1.38 K/uL (1.2-3.4) Monocytes # (Auto) 0.65 K/uL (0.11-0.59) Eosinophils # (Auto) 0.19 K/uL (0-0.5) Basophils # (Auto) 0.04 K/uL (0-0.2) RDW Standard Deviation 38.1 fL (36.4-46.3) RDW Coefficient of Variation 12.9 % (11.5-14.5) Immature Granulocyte % (Auto) 0.1 % Immature Granulocyte # (Auto) 0.01 K/uL (0.00-0.02) Medical Decision Differential diagnosis includes spontaneous , inevitable , placenta previa, subchorionic hematoma, among others. The patient is a 22-year-old female who presents today complaining of vaginal bleeding in . Labs revealed no leukocytosis or anemia. Ultrasound was performed and showed closed cervix, normal heart rate. There was a small subchorionic hematoma which may be the source of bleeding. Patient is blood type B+ and will not require RhoGam. She will need 48 hour follow-up with [employer]. She was instructed to call them and arrange this as soon as possible. Based on the patient's presentation and work up, I feel the patient is stable for outpatient treatment. The patient was educated to return to the emergency department for any worsening of their current condition or new/concerning symptoms. She will follow up with [employer]. Medication Reconcilliation Current Medication List: was personally reviewed by me Blood Pressure Screening Patient's blood pressure: Normal blood pressure Impression Primary Impression: Vaginal bleeding during Departure Information Dispostion Home / Self-Care Condition GOOD Prescriptions No Active Prescriptions or Reported Meds Referrals No Doctor, Assigned (PCP) Patient Instructions My [facility] Additional Instructions Your ultrasound today showed a normal heart rate. For pain control, you can use the following [id number] medicines (if >12 yo): - Regular strength (325mg/tab) Tylenol (acetaminophen) 2 tabs every 4-6 hours as needed. Do not exceed 12 tablets in a 24 hour period. Avoid taking more than 4 grams (4000 mg) of Tylenol per day. This includes any other sources of acetaminophen you may take on a regular basis. Contact your [employer] to schedule follow-up within 48 hours. Pelvic rest: Nothing in the vagina (tampons, intercourse, douching) until cleared by your primary care provider. Return to the emergency department with worsening bleeding, abdominal pain, or any other new/concerning symptoms.
[2018-02-05 04:19] LABS: ALBUMIN 2.9 gm/dl (3.4-5.0); ALT/SGPT 15 U/L (12-78); AST/SGOT 11 U/L (15-37); BLOOD UREA NITROGEN 5 mg/dl (7-18); CALCIUM 8.4 mg/dl (8.5-10.1); CARBON DIOXIDE 22 mmol/L (21-32); CREATININE 0.55 mg/dl (0.60-1.20); GLUCOSE 90 mg/dl (70-99); POTASSIUM 3.4 mmol/L (3.5-5.1); SODIUM 136 mmol/L (136-145)
[2018-02-05 04:21] LABS: ALKALINE PHOSPHATASE 54 U/L (45-117); TOTAL PROTEIN 6.5 gm/dl (6.4-8.2)
[2018-02-05 05:52] VITALS: BP 111/63; PULSE 76; O2SAT 96
--- NOTE | 2018-02-05 05:59 | DIAGNOSTIC IMAGING REPORT ---
LIMITED (US) CLINICAL HISTORY: , vaginal bleeding bleeding TECHNIQUE: Ultrasound COMPARISON STUDY: None FINDINGS: Single, viable intrauterine . Estimated gestational age 13 weeks 4 days. Posterior placenta. No evidence for placenta previa. Maternal cervix 4 cm. Very small subchorionic bleed. IMPRESSION: 1. Single, viable intrauterine of approximately 13 weeks 4 days gestational age. 2. The maternal cervix is 4 cm and is closed. 3. Very small subchorionic bleed]/ implantation bleed measuring 1.5 x 0.4 cm. The above report was generated using voice recognition software. It may contain grammatical, syntax or spelling errors. Electronically signed by: Mario Gonzalez M.D. 02/05/2018 5:58 AM Dictated Date/Time: 02/05/2018 5:57 AM
== END 2018-02-05 05:53 | disposition home or self-care (01) ==
LOC: C.EDB 02:57 → C.EDA 05:53
DX: O46.8X2 Other antepartum hemorrhage, second trimester (principal); Z3A.13 13 weeks gestation of pregnancy

== ENCOUNTER → 2018-02-23 | Outpatient (CLI) | payer OTHER | END | disposition home or self-care (01) | LOC: C.LAB1850 16:07 | PROVIDERS: ATTEND Obstetrics & Gynecology | DX: O09.212 Supervision of pregnancy with history of pre-term labor, second trimester (principal); Z3A.00 Weeks of gestation of pregnancy not specified ==

== ENCOUNTER 2018-06-18 16:30 | Emergency (ER) | payer OTHER ==
[~2018-06-18] VITALS: Ht 157.5 cm; Wt 80.6 kg
[~2018-06-18 16:30] MED LIST changes: -ACET-1256 PO; -ETON1IMP2 EP; +HYDR1INJ12 INJ
[2018-06-18 16:35] VITALS: TEMP 37; Ht 157.5 cm; Wt 80.6 kg
[2018-06-18] MEDS ORDERED: PRENTAB26 PO (16:52)
--- NOTE | 2018-06-18 16:59 | EMERGENCY ROOM VISIT NOTE ---
ED Visit Note First contact with patient: 16:33 CHIEF COMPLAINT: Cat bite left forearm HISTORY OF PRESENT ILLNESS: This 23-year-old female presents to the ER with chief complaint that she was bit by a stray cat yesterday. She states that her grandfather set a trap for a stray cat since it was eating through garbage bags that were on the porch. Her son went and opened up the trap door and the cat came out and bit the patient on the left forearm. The patient states the bleeding stopped momentarily. She states there are just a few puncture wounds on her left forearm. The patient's tetanus is up-to-date. REVIEW OF SYSTEMS: 6 system review was performed and was negative unless stated otherwise in history of present illness. PMH: The patient is healthy; see chronic problem list. SOCIAL HISTORY: Patient lives with her family PHYSICAL EXAM: Vital Signs: Reviewed reviewed Nurse's notes. GENERAL: 23-year- old white female appears in no acute distress. MENTAL Status: Alert and oriented 3. LUNGS: Clear to auscultation without wheezes rales or rhonchi. CARDIAC: Regular rate and rhythm without murmur. LEFT FOREARM: There are 4 puncture wounds on the left posterior forearm which are scabbed over and there is minimal surrounding erythema. No streaking noted up the arm. EMERGENCY DEPARTMENT COURSE: The patient was evaluated. The patient was given rabies immune globulin and rabies vaccine, the former based on weight. Patient was also given Augmentin 875 mg 1 tablet p.o. Animal bite form was completed. DIAGNOSIS: Bite left forearm Rabies prophylaxis DISCHARGE INSTRUCTIONS: Today is considered day 0. Return to the ER on day 3, 7 and 14 for the remainder of the vaccine series. Take Augmentin as prescribed. Tylenol as needed for pain. Problem List Medical Problems: (1) Abdominal pain Status: Resolved (2) Acute anxiety Status: Resolved (3) Allergic rhinitis Status: Resolved (4) Bilateral wrist pain Status: Resolved (5) Cluster B personality disorder Status: Chronic (6) Depression Status: Chronic (7) Encounter for removal of sutures Status: Resolved (8) Encounter for wound re-check Status: Resolved (9) Encounter for wound re-check Status: Resolved (10) Infected finger laceration Status: Resolved (11) Laceration of forearm, left Status: Resolved (12) Left upper arm pain Status: Resolved (13) Lower abdominal pain Status: Resolved (14) Miscarriage Status: Resolved (15) No significant past medical history Status: Resolved (16) Pain, dental Status: Resolved (17) Pharyngitis Status: Resolved (18) Status: Resolved (19) Right leg pain Status: Resolved (20) Self-inflicted injury Status: Resolved (21) UTI (urinary tract infection) Status: Resolved (22) Vaginal bleeding Status: Resolved (23) Wound dehiscence Status: Resolved (24) Wound dehiscence Status: Resolved Current/Historical Medications Scheduled Multivit/Min/Iron/Fol Ac/Pren ( Vitamin), 1 TAB PO DAILY Allergies Coded Allergies: No Known Allergies (Unverified , 06/18/18) Vital Signs Date Time Temp Pulse Resp B/P (MAP) Pulse Ox O2 Delivery O2 Flow Rate FiO2 06/18/18 16:35 37.0 89 20 116/80 97 Room Air Departure Information Referrals Debbie Key M.D. (PCP) Patient Instructions My [facility]
[2018-06-18] MEDS ORDERED: RABIES VACCINE (IMOVAX) HUMAN DIPL CELL 2.5 INTER.UNIT/ML SYR IM. ONE (17:00)
[2018-06-18] MEDS ORDERED: RABIES IMMUNE GLOBULIN (HUMAN) 150 INTER.UNIT/ML 2 ML VIAL IM. ONE (17:00)
[2018-06-18] MEDS ORDERED: AMOXICILLIN/CLAVULANATE TAB 875 MG TAB PO ONE (17:00)
[2018-06-18] MEDS ORDERED: AMOX875T PO (17:02)
[2018-06-18 17:40] VITALS: BP 112/69; PULSE 77; O2SAT 99
== END 2018-06-18 17:44 | disposition home or self-care (01) ==
LOC: C.EDB 16:32 → C.EDD 17:44
DX: S51.852A Open bite of left forearm, initial encounter (principal); W55.01XA Bitten by cat, initial encounter; Z20.3 Contact with and (suspected) exposure to rabies; Z23 Encounter for immunization

== ENCOUNTER 2018-06-29 02:51 | Outpatient (CLI) | payer OTHER ==
[~2018-06-29] VITALS: Ht 160 cm; Wt 79.5 kg
[~2018-06-29 02:51] MED LIST changes: +AMOX875T PO; -HYDR1INJ12 INJ; +PRENTAB26 PO
[2018-06-29 03:57] VITALS: Ht 160 cm; Wt 79.5 kg
--- NOTE | 2018-07-06 12:29 | EDITING REQUIRED CODING QUERY ---
DIAGNOSIS NEEDED To promote full compliance with coding requirements relating to patient care, physician participation is requested in all cases of meat clerk uncertainty. Please assist us with the question(s) below: Coding Question: The patient received care in labor and delivery on 06/29/18 as noted within the record. Please document the diagnosis that is being addressed by the medication/treatment. Provider Response: DIAGNOSIS: contractions WEEKS OF GESTATION: 3rd trimester Thank you for your assistance, Mervat Arroyo - Lumber Carrier Operator
== END 2018-06-29 03:54 | disposition home or self-care (01) ==
LOC: C.LD 02:51 → C.OPB 02:51
PROVIDERS: ATTEND Obstetrics & Gynecology
DX: O62.9 Abnormality of forces of labor, unspecified (principal); Z3A.00 Weeks of gestation of pregnancy not specified

== ENCOUNTER 2018-07-11 03:51 | Outpatient (CLI) | payer OTHER | END 2018-07-11 04:35 | disposition home or self-care (01) | LOC: C.OPB 03:51 → C.LD 03:52 → C.OPB 04:35 | PROVIDERS: ATTEND Obstetrics & Gynecology | DX: O36.8130 Decreased fetal movements, third trimester, not applicable or unspecified (principal); Z3A.35 35 weeks gestation of pregnancy ==